=== PATIENT | male | born 1975 | race Caucasian/White ===

== ENCOUNTER 2016-11-29 18:16 | Inpatient (IN) | payer BC ==
[2016-11-29] MEDS ORDERED: SODIUM CHLORIDE 0.9% 500 ML IV STA (18:39)
[2016-11-29] MEDS ORDERED: IPRATROPIUM-ALBUTEROL 3 ML NEB INHALATION STA (18:39)
[2016-11-29] MEDS ORDERED: SODIUM CHLORIDE 0.9% 1,000 ML IV STA (18:39)
--- NOTE | 2016-11-29 18:45 | ED ---
General Adult HPI - General Chief complaint: Shortness of Breath Stated complaint: SOB, dizziness, weakness Time Seen by Provider: 11/29/16 18:29 Source: patient, RN notes reviewed, old records reviewed Mode of arrival: wheelchair Limitations: no limitations - History of Present Illness Initial comments: Chief complaint history of present illness a 41-year-old male brought emergency room because of shortness of breath. The patient is morbidly obese weighs 400 pounds. He reports 2 days ago while on the job his coworkers said he looked awful. He took a day off yesterday and decided to come in today because of difficulty breathing. His pulse ox was in the 70s. It went up after is placed on O2. The patient is diaphoretic states he thinks he may have had a fever at home. No chest pain but he has had a productive cough no nausea no vomiting no diarrhea but decreased appetite. - Related Data Home Medications Medication Instructions Recorded Confirmed Naproxen Sodium [Aleve] 440 mg PO TID PRN 04/29/16 04/29/16 Primatine Mist Tabs 1 tab PO Q4H PRN 04/29/16 04/29/16 Previous Rx's Medication Instructions Recorded Collagenase [Santyl] 1 applic TOPICAL DAILY #1 applic 05/02/16 Dicloxacillin [Dynapen] 500 mg PO Q6H 14 Days 05/02/16 Ipratropium-Albuterol Nebulize 3 ml INHALATION RT-Q4H #120 05/02/16 [Duoneb 0.5 mg-3 mg/3 ml Soln] ampul.neb Montelukast [Singulair] 10 mg PO HS #30 tab 05/02/16 predniSONE 60 mg PO DAILY #60 tab 05/02/16 Allergies Allergy/AdvReac Type Severity Reaction Status Date / Time hydromorphone [From Dilaudid] Allergy Unknown Verified 11/29/16 18:23 Review of Systems ROS Statement: Those systems with pertinent positive or pertinent negative responses have been documented in the HPI. Review of systems. Patient denies any headache or visual acuity changes he is diaphoretic. No chest pain does complain of being short of breath for the past several days of feeling better on O2. No nausea no vomiting no abdominal pain and takes about normal. No significant change in peripheral swelling. All systems are reviewed Past medical problems significant for possible COPD per patient. Morbid obesity and large cellulitis on that left leg back in April. Patient smokes a pack per day strongly encouraged to stop. States he never followed up after being discharged and told he should because of his lung problems. ROS Other: All systems not noted in ROS Statement are negative. Past Medical History Additional Past Medical History / Comment(s): obesity, L thigh numbness on and off, bilateral lower extremity reddened skin, bilateral lower leg and pedal edema. History of Any Multi-Drug Resistant Organisms: None Reported Past Surgical History: Orthopedic Surgery Additional Past Surgical History / Comment(s): I&D R neck abscess, R humerus fx with plate. Past Anesthesia/Blood Transfusion Reactions: No Reported Reaction Past Psychological History: No Psychological Hx Reported Additional Psychological History / Comment(s): Pt resides with his girlfriend. He is independent. 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 Smoking Status: Current every day smoker Past Alcohol Use History: None Reported Additional Past Alcohol Use History / Comment(s): Pt states he started smoking in 1989 and is a ppd smoker. Past Drug Use History: None Reported - Past Family History Father Family Medical History: Cancer Additional Family Medical History / Comment(s): Father had lymphom treated with chemo. He is alive and in his 60's Mother Family Medical History: Myocardial Infarction (DE) Additional Family Medical History / Comment(s): Mother possibly of a DE at the age of 62. General Exam - General Exam Comments Initial Comments: General: The patient is awake and alert, presents short of breath with low pulse ox. Nonrebreather increase pulse ox is 95%. Patient's diaphoretic. Reports she's had productive green cough for several days. Vital signs show temperature 98.9 pulse 120 blood pressure 176/95. pulse ox 70% on room air up to 95% with nonrebreather. Eye: Pupils are equal, round and reactive to light, extra-ocular movements are intact ; there is normal conjunctiva bilaterally. No signs of icterus. Ears, nose, mouth and throat: There are moist mucous membranes and no oral lesions. Neck: The neck is supple, there is no tenderness . Cardiovascular: Tachycardic heart rate 120. No murmur, rub or gallop is appreciated. Respiratory: Short of breath with low pulse ox, improved after nonrebreather. Distant heart sounds unable to appreciate any crepitant rales. No wheezing appreciated. He does have history of COPD and last admission. Gastrointestinal: Morbidly obese, denying nausea vomiting or diarrhea. No pain on palpation around the abdomen. No pulsatile masses appreciated no organomegaly. Back: There is no tenderness to palpation in the midline. There is no obvious deformity. No rashes noted. Musculoskeletal: Appears to be chronic venous stasis lower extremities he reports no more swelling today than normal. Positive pitting edema Neurological: CN II-XII intact, There are no obvious motor or sensory deficits. Coordination appears grossly intact. Speech is normal. Skin: Arrived diaphoretic. Psychiatric: Cooperative, appropriate mood & affect, normal judgment. Limitations: no limitations Course Vital Signs 11/29/16 11/29/16 11/29/16 18:19 18:40 19:04 Temperature 99.8 F H Pulse Rate 120 H 100 Respiratory 20 Rate Blood Pressure 176/95 O2 Sat by Pulse 70 L 92 L Oximetry 11/29/16 19:13 Temperature Pulse Rate 96 Respiratory Rate Blood Pressure O2 Sat by Pulse Oximetry EKG Findings - EKG Comments: EKG Findings:: EKG was done and reviewed at 1831 showing sinus tachycardia rate 104. An incomplete right bundle branch block no acute ST elevation no ectopy no ischemic changes. Rate 14. Was 170 QRS 90 QT [address] John Medical Decision Making - Medical Decision Making Medical decision making the patient's white count 20.9 BUN 17 creatinine 53 with a troponin 0.52. INR 1.3 with a potassium 5.5 BUN 24 creatinine 0.67 with a GFR greater than 60. Glucose 165. BNP elevated 2009 Chest x-ray was done and reviewed by radiologist his impression is there is coarse interstitial densities throughout the lungs. Heart size is normal. There are no hilar masses. There is no definite pleural effusion. Bony thorax is intact. Impression increased pulmonary interstitial density compared to last exam is nonspecific no pleural effusion or cardiomegaly suggest heart failure. This is consistent with nonspecific interstitial pneumonia. This appears to be new compared to last exam. Dr. Florez. The patient's febrile, with a white count. Productive cough. With no elevated BNP. He also has no elevated troponin. He is receiving heparin. He'll be started on Levaquin and is already received updraft and nitroglycerin and heparin. The case discussed Dr. De Anda on-call for Dr. Cole. Patient be admitted to his service. 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 Cardiology will also be notified because of the elevated troponin. - Lab Data Result diagrams: 11/29/16 18:34 11/29/16 18:34 Lab Results 11/29/16 11/29/16 11/29/16 Range/Units 18:34 18:34 18:34 WBC 20.9 H (3.8-10.6) k/uL RBC 5.36 (4.30-5.90) m/uL Hgb 17.5 (13.0-17.5) gm/dL Hct 53.7 H (39.0-53.0) % MCV 100.3 H (80.0-100.0) fL MCH 32.7 (25.0-35.0) pg MCHC 32.6 (31.0-37.0) g/dL RDW 14.6 (11.5-15.5) % Plt Count 248 (150-450) k/uL Neutrophils % 91 % Lymphocytes % 4 % Monocytes % 3 % Eosinophils % 1 % Basophils % 0 % Neutrophils # 19.1 H (1.3-7.7) k/uL Lymphocytes # 0.9 L (1.0-4.8) k/uL Monocytes # 0.6 (0-1.0) k/uL Eosinophils # 0.2 (0-0.7) k/uL Basophils # 0.1 (0-0.2) k/uL Hypochromasia Moderate Macrocytosis Slight PT (9.0-12.0) sec INR (<1.1) APTT (22.0-30.0) sec Sodium 138 (137-145) mmol/L Potassium 5.5 H (3.5-5.1) mmol/L Chloride 94 L (98-107) mmol/L Carbon Dioxide 33 H (22-30) mmol/L Anion Gap 11 mmol/L BUN 24 H (9-20) mg/dL Creatinine 0.67 (0.66-1.25) mg/dL Est GFR (MDRD) Af Amer >60 (>60 ml/min/1.73 sqM) Est GFR (MDRD) Non-Af >60 (>60 ml/min/1.73 sqM) Glucose 165 H (74-99) mg/dL Calcium 9.0 (8.4-10.2) mg/dL Magnesium 2.2 (1.6-2.3) mg/dL Total Bilirubin 1.3 (0.2-1.3) mg/dL AST 35 (17-59) U/L ALT 46 (21-72) U/L Alkaline Phosphatase 100 (38-126) U/L Total Creatine Kinase 60 (55-170) U/L CK-MB (CK-2) 2.0 (0.0-2.4) ng/mL CK-MB (CK-2) Rel Index 3.3 Troponin I 0.052 H* (0.000-0.034) ng/mL NT-Pro-B Natriuret Pep pg/mL Total Protein 7.2 (6.3-8.2) g/dL Albumin 3.9 (3.5-5.0) g/dL 11/29/16 11/29/16 Range/Units 18:34 18:34 WBC (3.8-10.6) k/uL RBC (4.30-5.90) m/uL Hgb (13.0-17.5) gm/dL Hct (39.0-53.0) % MCV (80.0-100.0) fL MCH (25.0-35.0) pg MCHC (31.0-37.0) g/dL RDW (11.5-15.5) % Plt Count (150-450) k/uL Neutrophils % % Lymphocytes % % Monocytes % % Eosinophils % % Basophils % % Neutrophils # (1.3-7.7) k/uL Lymphocytes # (1.0-4.8) k/uL Monocytes # (0-1.0) k/uL Eosinophils # (0-0.7) k/uL Basophils # (0-0.2) k/uL Hypochromasia Macrocytosis PT 12.6 H (9.0-12.0) sec INR 1.3 (<1.1) APTT 26.4 (22.0-30.0) sec Sodium (137-145) mmol/L Potassium (3.5-5.1) mmol/L Chloride (98-107) mmol/L Carbon Dioxide (22-30) mmol/L Anion Gap mmol/L BUN (9-20) mg/dL Creatinine (0.66-1.25) mg/dL Est GFR (MDRD) Af Amer (>60 ml/min/1.73 sqM) Est GFR (MDRD) Non-Af (>60 ml/min/1.73 sqM) Glucose (74-99) mg/dL Calcium (8.4-10.2) mg/dL Magnesium (1.6-2.3) mg/dL Total Bilirubin (0.2-1.3) mg/dL AST (17-59) U/L ALT (21-72) U/L Alkaline Phosphatase (38-126) U/L Total Creatine Kinase (55-170) U/L CK-MB (CK-2) (0.0-2.4) ng/mL CK-MB (CK-2) Rel Index Troponin I (0.000-0.034) ng/mL NT-Pro-B Natriuret Pep 2010 pg/mL Total Protein (6.3-8.2) g/dL Albumin (3.5-5.0) g/dL Disposition Clinical Impression: Interstitial pneumonia, COPD (chronic obstructive pulmonary disease), Elevated troponin Disposition: ADMITTED IP TO THIS HOSP Condition: Serious
[2016-11-29 18:51] LABS: Basophils # (A) 0.1 k/uL (0-0.2); Basophils % (A) 0 %; CH 30.9; Eosinophils # (A) 0.2 k/uL (0-0.7); Eosinophils % (A) 1 %; HCT 53.7 % (39.0-53.0); HDW 2.85; HGB 17.5 gm/dL (13.0-17.5); Hypochromasia Moderate; Luc # (Auto) 0.12; Luc % (Auto) 1; Lymphocytes # (A) 0.9 k/uL (1.0-4.8); Lymphocytes % (A) 4 %; MCH 32.7 pg (25.0-35.0); MCHC 32.6 g/dL (31.0-37.0); MCV 100.3 fL (80.0-100.0); Macrocytosis Slight; Mean Platelet Volume 7.1; Monocytes # (A) 0.6 k/uL (0-1.0); Monocytes % (A) 3 %; Neutrophils # (A) 19.1 k/uL (1.3-7.7); Neutrophils % (A) 91 %; RBC 5.36 m/uL (4.30-5.90); RDW 14.6 % (11.5-15.5); WBC 20.9 k/uL (3.8-10.6); WBC (Perox) 22.76
[2016-11-29 19:01] LABS: ALT 46 U/L (21-72); AST 35 U/L (17-59); Alkaline Phosphatase 100 U/L (38-126); Anion Gap 11 mmol/L; Blood Urea Nitrogen 24 mg/dL (9-20); Carbon Dioxide 33 mmol/L (22-30); Chloride 94 mmol/L (98-107); Glucose 165 mg/dL (74-99); Magnesium 2.2 mg/dL (1.6-2.3); Non-African American GFR(MDRD) >60 (>60 ml/min/1.73 sqM); Sodium 138 mmol/L (137-145); Total Bilirubin 1.3 mg/dL (0.2-1.3); Total Protein 7.2 g/dL (6.3-8.2)
[2016-11-29 19:03] LABS: INR 1.3 (<1.1); Partial Thromboplastin Time 26.4 sec (22.0-30.0); Prothrombin Time 12.6 sec (9.0-12.0)
[2016-11-29 19:14] LABS: Potassium 5.5 mmol/L (3.5-5.1)
[2016-11-29] MEDS ORDERED: methylPREDNISolone SOD SUCCI 125 MG/2 ML VIAL IV STA (19:18)
[2016-11-29 19:37] LABS: Troponin I 0.052 ng/mL (0.000-0.034)
[2016-11-29] MEDS ORDERED: FUROSEMIDE 10 MG/ML 4 ML VIAL IV STA (19:48)
[2016-11-29] MEDS ORDERED: HEPARIN SODIUM,PORCINE 5,000 UNIT/ML 1 ML VIAL IV ONE (19:50)
[2016-11-29] MEDS: HEPARIN SODIUM,PORCINE/D5W PMX 25,000 UNIT in DEXTROSE/WATER 1 500ML.BAG IV SCH (20:16)
--- NOTE | 2016-11-29 20:24 | XR ---
EXAMINATION TYPE: XR chest 2V DATE OF EXAM: 11/29/2016 8:06 PM COMPARISON: May 01, 2016 HISTORY: Difficulty breathing TECHNIQUE: Frontal and lateral views of the chest are obtained. FINDINGS: There is coarse interstitial density throughout the lungs. Heart size is normal. There are no hilar masses. There is no definite pleural effusion. Bony thorax is intact. IMPRESSION: Increased pulmonary interstitial density compared to last exam is nonspecific. No pleura l fluid or cardiomegaly to suggest heart failure. This is consistent with nonspecific interstitial pn eumonia. This appears new compared to last exam.
[2016-11-29] MEDS ORDERED: LEVOFLOXACIN 500MG-D5W PMX 500 MG in DEXTROSE/WATER 1 100ML.BAG IVPB STA (20:39)
[2016-11-29] MEDS ORDERED: IPRATROPIUM-ALBUTEROL 3 ML NEB INHALATION PRN (20:45)
[2016-11-29] MEDS ORDERED: NALOXONE 0.4 MG/ML 1 ML VIAL IV PRN (20:45)
[2016-11-29] MEDS ORDERED: ACETAMINOPHEN TAB 325 MG TAB PO PRN (20:45)
[2016-11-29] MEDS ORDERED: ACETAMINOPHEN IV (For NPO) 1,000 MG in EMPTY BAG 1 BAG IVPB STA (21:17)
[2016-11-29] MEDS ORDERED: NITROGLYCERIN SL TABS 0.4 MG TAB SUBLINGUAL STA (21:17)
[2016-11-29] MEDS ORDERED: hydrALAZINE HCL 20 MG/ML 1 ML VIAL IVP STA (22:26)
[2016-11-30] MEDS: FUROSEMIDE 10 MG/ML 4 ML VIAL IV SCH ×4 (01:33→20:49)
[2016-11-30] MEDS: methylPREDNISolone SOD SUCCI 125 MG/2 ML VIAL IV SCH ×4 (01:33→18:01)
[2016-11-30] MEDS: FAMOTIDINE 20 MG TAB PO SCH ×3 (01:36→20:49)
[2016-11-30] MEDS ORDERED: ADENOSINE 3 MG/ML 2 ML VIAL IVP STA (05:03)
--- NOTE | 2016-11-30 05:06 | ED ---
Medical Decision Making - Medical Decision Making The patient was noted during his stay in the emergency department after admission this heart rate without markedly. Was unclear from was SVT versus atrial fibrillation with a rapid ventricular response. Patient was given 6 mg of adenosine which did reveal atrial flutter. Patient was started on a Cardizem drip. He will be seen by cardiology in the a.m. - Lab Data Result diagrams: 11/29/16 18:34 11/29/16 18:34 Lab Results 11/29/16 11/29/16 11/29/16 Range/Units 18:34 18:34 18:34 WBC 20.9 H (3.8-10.6) k/uL RBC 5.36 (4.30-5.90) m/uL Hgb 17.5 (13.0-17.5) gm/dL Hct 53.7 H (39.0-53.0) % MCV 100.3 H (80.0-100.0) fL MCH 32.7 (25.0-35.0) pg MCHC 32.6 (31.0-37.0) g/dL RDW 14.6 (11.5-15.5) % Plt Count 248 (150-450) k/uL Neutrophils % 91 % Lymphocytes % 4 % Monocytes % 3 % Eosinophils % 1 % Basophils % 0 % Neutrophils # 19.1 H (1.3-7.7) k/uL Lymphocytes # 0.9 L (1.0-4.8) k/uL Monocytes # 0.6 (0-1.0) k/uL Eosinophils # 0.2 (0-0.7) k/uL Basophils # 0.1 (0-0.2) k/uL Hypochromasia Moderate Macrocytosis Slight PT (9.0-12.0) sec INR (<1.1) APTT (22.0-30.0) sec Sodium 138 (137-145) mmol/L Potassium 5.5 H (3.5-5.1) mmol/L Chloride 94 L (98-107) mmol/L Carbon Dioxide 33 H (22-30) mmol/L Anion Gap 11 mmol/L BUN 24 H (9-20) mg/dL Creatinine 0.67 (0.66-1.25) mg/dL Est GFR (MDRD) Af Amer >60 (>60 ml/min/1.73 sqM) Est GFR (MDRD) Non-Af >60 (>60 ml/min/1.73 sqM) Glucose 165 H (74-99) mg/dL Calcium 9.0 (8.4-10.2) mg/dL Magnesium 2.2 (1.6-2.3) mg/dL Total Bilirubin 1.3 (0.2-1.3) mg/dL AST 35 (17-59) U/L ALT 46 (21-72) U/L Alkaline Phosphatase 100 (38-126) U/L Total Creatine Kinase 60 (55-170) U/L CK-MB (CK-2) 2.0 (0.0-2.4) ng/mL CK-MB (CK-2) Rel Index 3.3 Troponin I 0.052 H* (0.000-0.034) ng/mL NT-Pro-B Natriuret Pep pg/mL Total Protein 7.2 (6.3-8.2) g/dL Albumin 3.9 (3.5-5.0) g/dL 11/29/16 11/29/16 Range/Units 18:34 18:34 WBC (3.8-10.6) k/uL RBC (4.30-5.90) m/uL Hgb (13.0-17.5) gm/dL Hct (39.0-53.0) % MCV (80.0-100.0) fL MCH (25.0-35.0) pg MCHC (31.0-37.0) g/dL RDW (11.5-15.5) % Plt Count (150-450) k/uL Neutrophils % % Lymphocytes % % Monocytes % % Eosinophils % % Basophils % % Neutrophils # (1.3-7.7) k/uL Lymphocytes # (1.0-4.8) k/uL Monocytes # (0-1.0) k/uL Eosinophils # (0-0.7) k/uL Basophils # (0-0.2) k/uL Hypochromasia Macrocytosis PT 12.6 H (9.0-12.0) sec INR 1.3 (<1.1) APTT 26.4 (22.0-30.0) sec Sodium (137-145) mmol/L Potassium (3.5-5.1) mmol/L Chloride (98-107) mmol/L Carbon Dioxide (22-30) mmol/L Anion Gap mmol/L BUN (9-20) mg/dL Creatinine (0.66-1.25) mg/dL Est GFR (MDRD) Af Amer (>60 ml/min/1.73 sqM) Est GFR (MDRD) Non-Af (>60 ml/min/1.73 sqM) Glucose (74-99) mg/dL Calcium (8.4-10.2) mg/dL Magnesium (1.6-2.3) mg/dL Total Bilirubin (0.2-1.3) mg/dL AST (17-59) U/L ALT (21-72) U/L Alkaline Phosphatase (38-126) U/L Total Creatine Kinase (55-170) U/L CK-MB (CK-2) (0.0-2.4) ng/mL CK-MB (CK-2) Rel Index Troponin I (0.000-0.034) ng/mL NT-Pro-B Natriuret Pep 2010 pg/mL Total Protein (6.3-8.2) g/dL Albumin (3.5-5.0) g/dL Disposition Clinical Impression: Interstitial pneumonia, COPD (chronic obstructive pulmonary disease), Elevated troponin, Atrial flutter with rapid ventricular response Disposition: ADMITTED IP TO THIS HOSP Condition: Serious
[2016-11-30] MEDS ORDERED: HEPARIN SODIUM,PORCINE 5,000 UNIT/ML 1 ML VIAL IV ONE ×2 (05:07→22:55)
[2016-11-30] MEDS: DILTIAZEM 125 MG in SODIUM CHLORIDE 0.9% 100 ML IV SCH ×2 (05:25→23:06)
[2016-11-30 05:32] LABS: INR 1.5 (<1.1); Prothrombin Time 14.2 sec (9.0-12.0)
[2016-11-30 06:07] LABS: Anion Gap 13 mmol/L; Blood Urea Nitrogen 24 mg/dL (9-20); Calcium 8.8 mg/dL (8.4-10.2); Carbon Dioxide 28 mmol/L (22-30); Chloride 97 mmol/L (98-107); Glucose 200 mg/dL (74-99); Non-African American GFR(MDRD) >60 (>60 ml/min/1.73 sqM); Sodium 138 mmol/L (137-145)
[2016-11-30 06:22] LABS: CH 30.7; CHCM 30.5; HDW 2.75; Hypochromasia Moderate; MCV 101.2 fL (80.0-100.0); Macrocytosis Slight
[2016-11-30 06:25] LABS: HCT 58.6 % (39.0-53.0); HGB 18.4 gm/dL (13.0-17.5); MCH 31.9 pg (25.0-35.0); MCHC 31.5 g/dL (31.0-37.0); Mean Platelet Volume 7.4; RBC 5.79 m/uL (4.30-5.90); RDW 14.6 % (11.5-15.5); WBC 19.1 k/uL (3.8-10.6); WBC (Perox) 20.17
[2016-11-30 07:19] LABS: Add Differential Manual Differential
[2016-11-30 07:21] LABS: Nucleated Red Blood Cells 0 /100 WBC (0-0); Polychromasia Present; Total Cells Counted 100
[2016-11-30] MEDS: SODIUM CHLORIDE 0.9% 1,000 ML IV SCH ×2 (07:47→16:57)
--- NOTE | 2016-11-30 07:49 | XR ---
EXAMINATION TYPE: XR chest 1V DATE OF EXAM: 11/30/2016 6:06 AM COMPARISON: 11/29/2016 HISTORY: 41-year-old male interstitial pneumonia TECHNIQUE: Single frontal view of the chest is obtained. FINDINGS: Heart is upper limits of normal in size. Diffuse interstitial opacities persist. No kendrick consolidati on or significant pleural effusion seen below the left base is underpenetrated and limited evaluation . IMPRESSION: Overall stable diffuse interstitial densities. Some differential considerations include cardiogenic/n oncardiogenic pulmonary edema, atypical pneumonias, and interstitial pneumonitis.
[2016-11-30 17:39] LABS: Glucose,Whole Blood 133 mg/dL (75-99)
[2016-11-30] MEDS: HEPARIN SODIUM,PORCINE/D5W PMX 25,000 UNIT in DEXTROSE/WATER 1 500ML.BAG IV SCH ×3 (18:01→21:55)
[2016-11-30 20:37] VITALS: BMI 65.3
[2016-11-30] MEDS: LEVALBUTEROL NEB 1.25 MG/3 ML AMP INHALATION SCH (20:40)
--- NOTE | 2016-11-30 20:47 | CONS ---
DATE OF CONSULTATION: Mr. Lopez is a 41-year-old male with no prior ( ) who does not follow with a physician on a regular basis who presented with symptoms of progressive dyspnea. Patient was noted to be quite dyspneic on presentation. He subsequently had an episode of atrial flutter with 2:1 conduction, was started on IV Cardizem drip and converted back to sinus mechanism. He was in the hospital in March of this year and at that time presented with severe sepsis with left thigh wound and cellulitis with evidence of severe obstructive sleep apnea and unfortunately, did not follow up after his discharge. During that admission he had an echocardiogram that showed a preserved left ventricular size and systolic function, with moderately dilated right ventricle. Patient has no symptoms of chest pain except today with a cough. He has history of peripheral edema. He has no clear PND. He did not feel the arrhythmia and he has no history of syncope. He started to feel dyspneic and fatigued for the last 4 days with cough. He did not check his temperature. He is back in sinus mechanism at the time of my evaluation. His coronary risk factors are remarkable for smoking and he has not been treated for hypertension or hyperlipidemia in the past. He denies any history of diabetes. He is taking no medication at the time of his discharge. REVIEW OF SYSTEMS: RESPIRATORY SYSTEM: He has significant dyspnea on exertion, a cough. He has history of obstructive sleep apnea, but he is not on CPAP. GI system: No recent GI bleeding. No peptic ulcer disease. system: No dysuria or hematuria. Nervous system: No history of stroke or seizure. SOCIAL HISTORY: He denies any alcohol. He drinks caffeine and uses marijuana occasionally. According to him the last time he used it was over 4 weeks ago. PHYSICAL EXAMINATION: A 41-year-old male, morbidly obese, alert, in no apparent distress. Blood pressure 167/70 with a heart in the 80s. HEAD: Normocephalic. EYES: Sclerae anicteric. NECK: No bruit. LUNGS: With decreased air exchange bilaterally with diffuse wheezes. HEART: Regular rate and rhythm. S1, S2, no S3, with systolic murmur at the base. No diastolic murmur. ABDOMEN: Soft, obese, nontender, positive bowel sounds. No organomegaly. EXTREMITIES: +1 to 2 edema bilaterally with decreased distal pulses and chronic stasis changes. Lab data revealed a white blood cell of 20.9. His hemoglobin is 18.4, his BUN and creatinine 24 and 0.6. On presentation, his bicarb 41. His troponin is 0.052 and subsequently 0.026. His NT-proBNP is 2010. His cholesterol is 116, LDL of 60. Chest x-ray shows increased density could be related to congestive heart failure, possible interstitial pneumonia cannot be excluded. His initial EKG was sinus mechanism, heart rate of 104 with poor R wave progression and nonspecific ST-T wave changes. Subsequently his EKG revealed atrial flutter with 2:1 conduction. IMPRESSION: 1. Progressive symptoms of dyspnea with probable pneumonia, in a patient with severe chronic lung disease with severe wheezing and history of obstructive sleep apnea, not treated. 2. Episode of atrial flutter back in sinus mechanism, could be exacerbated by his lung status. 3. Probable fluid overload related to his infectious disease. His systolic function was normal in April. 4. Chronic hypoxemia by the elevated hemoglobin. 5. Morbid obesity. 6. Obstructive sleep apnea. 7. Hypertension, not treated in the past. 8. Chronic tobacco use. RECOMMENDATIONS: From the cardiac standpoint, he is on IV heparin. I will start him on oral beta rush. I will obtain echocardiogram with Doppler. Check his thyroid function tests. I will start Lisinopril to optimize his blood pressure control. Will continue his diuresis. Depending on his progress, further recommendation will be made. Thank you for this consult. We will follow with you.
[2016-11-30] MEDS: LEVOFLOXACIN 500MG-D5W PMX 500 MG in DEXTROSE/WATER 1 100ML.BAG IVPB SCH (20:48)
[2016-11-30 20:52] LABS: Glucose,Whole Blood 192 mg/dL (75-99)
[2016-11-30] MEDS: INSULIN LISPRO (humaLOG) 300 UNIT/3 ML VIAL SQ SCH (20:52)
[2016-11-30] MEDS: METOPROLOL TARTRATE 25 MG TAB PO SCH (20:53)
[2016-11-30] MEDS ORDERED: IV VANCOMYCIN PER PHARMACY 1 EACH MISC MISCELLANE PRN (21:50)
[2016-11-30] MEDS ORDERED: VANCOMYCIN 2,500 MG in SODIUM CHLORIDE 0.9% 500 ML IVPB ONE (22:30)
[2016-11-30 22:36] LABS: Magnesium 2.3 mg/dL (1.6-2.3)
[2016-12-01] MEDS: methylPREDNISolone SOD SUCCI 125 MG/2 ML VIAL IV SCH ×5 (00:40→23:34)
[2016-12-01] MEDS: PIPERACILLIN-TAZOBACTAM 3.375 GM in DEXTROSE/WATER 1 50ML.BAG IVPB SCH ×4 (00:40→23:34)
[2016-12-01 01:57] LABS: Appearance,Urine Cloudy (Clear); Bacteria,Urine Rare /hpf; Bilirubin,Urine Negative (Negative); Glucose,Urine (UA) Negative (Negative); Ketones,Urine Negative (Negative); Leukocyte Esterase,Urine Small (Negative); Mucus,Urine Occasional /hpf; Nitrite,Urine Negative (Negative); PH, Urine 5.5 (5.0-8.0); Particle Count 7563; Protein,Urine Trace (Negative); RBC,Urine 3 /hpf (0-5); Specific Gravity,Urine 1.014 (1.001-1.035); Squamous Epithelial Cell,Urine <1 /hpf (0-4); UA Billing (MACRO vs. MICRO) MICRO; Urobilinogen,Urine <2.0 mg/dL (<2.0); WBC,Urine 7 /hpf (0-5)
[2016-12-01 05:11] LABS: Basophils % (A) 0 %; CH 30.2; CHCM 28.8; Eosinophils # (A) 0.2 k/uL (0-0.7); Eosinophils % (A) 1 %; HCT 56.5 % (39.0-53.0); HDW 2.71; Hypochromasia Marked; Luc # (Auto) 0.17; Luc % (Auto) 1; Lymphocytes # (A) 0.9 k/uL (1.0-4.8); Lymphocytes % (A) 4 %; MCH 31.6 pg (25.0-35.0); MCV 105.4 fL (80.0-100.0); Macrocytosis Moderate; Mean Platelet Volume 6.7; Monocytes # (A) 0.6 k/uL (0-1.0); Monocytes % (A) 3 %; Neutrophils # (A) 18.7 k/uL (1.3-7.7); Neutrophils % (A) 91 %; RBC 5.36 m/uL (4.30-5.90); RDW 14.5 % (11.5-15.5); WBC 20.7 k/uL (3.8-10.6); WBC (Perox) 21.83
[2016-12-01 05:53] LABS: Anion Gap 10 mmol/L; Blood Urea Nitrogen 36 mg/dL (9-20); Calcium 8.7 mg/dL (8.4-10.2); Carbon Dioxide 35 mmol/L (22-30); Chloride 98 mmol/L (98-107); Glucose 214 mg/dL (74-99); Magnesium 2.6 mg/dL (1.6-2.3); Non-African American GFR(MDRD) >60 (>60 ml/min/1.73 sqM); Phosphorous 5.4 mg/dL (2.5-4.5); Sodium 143 mmol/L (137-145)
[2016-12-01 05:56] LABS: Potassium 6.2 mmol/L (3.5-5.1)
[2016-12-01] MEDS ORDERED: SODIUM POLYSTYRENE SULFONATE 15 GM/60 ML BOTTLE PO STA (06:08)
[2016-12-01] MEDS: HEPARIN SODIUM,PORCINE/D5W PMX 25,000 UNIT in DEXTROSE/WATER 1 500ML.BAG IV SCH ×3 (06:21→20:38)
[2016-12-01 07:40] LABS: Glucose,Whole Blood 167 mg/dL (75-99)
[2016-12-01] MEDS: INSULIN LISPRO (humaLOG) 300 UNIT/3 ML VIAL SQ SCH ×4 (07:57→20:55)
[2016-12-01] MEDS: FUROSEMIDE 10 MG/ML 4 ML VIAL IV SCH ×2 (07:59→20:38)
[2016-12-01] MEDS: METOPROLOL TARTRATE 25 MG TAB PO SCH ×2 (07:59→20:39)
[2016-12-01] MEDS: FAMOTIDINE 20 MG TAB PO SCH (07:59)
[2016-12-01] MEDS: LISINOPRIL 5 MG TAB PO SCH (07:59)
[2016-12-01] MEDS: LEVALBUTEROL NEB 1.25 MG/3 ML AMP INHALATION SCH ×4 (08:22→19:48)
--- NOTE | 2016-12-01 08:37 | XR ---
EXAMINATION TYPE: XR chest 1V portable DATE OF EXAM: 12/01/2016 6:46 AM COMPARISON: Prior chest x-ray first of November 2016 HISTORY: Pneumonia TECHNIQUE: Single frontal view of the chest is obtained. FINDINGS: Bandlike area of increased density present in the mid lung on the right. There are overlyi ng cardiac leads. Interstitium somewhat increased. The heart remains enlarged. No pneumothorax or ple ural effusion. IMPRESSION: Persistent interstitial lung disease, atelectasis, correlate to exclude pneumonia. Stabl e cardiomegaly.
[2016-12-01] MEDS ORDERED: PANTOPRAZOLE 40 MG/10 ML VIAL IV SCH (09:00)
[2016-12-01] MEDS: VANCOMYCIN 2,500 MG in SODIUM CHLORIDE 0.9% 500 ML IVPB SCH ×2 (09:02→20:39)
[2016-12-01 09:12] LABS: ABG PCO2 101 mmHg (35-45); ABG PH 7.21 (7.35-7.45); ABG PO2 71 mmHg (83-108)
[2016-12-01 09:13] LABS: ABG Base Excess 10.5 mmol/L; ABG HCO3 38 mmol/L (21-25); ABG TCO2 42 mmol/L (19-24)
--- NOTE | 2016-12-01 10:43 | HP ---
DATE OF ADMISSION CHIEF COMPLAINT: Difficulty breathing. HISTORY OF PRESENT ILLNESS: Mr. Lopez is a 41-year-old male with known history of morbid obesity, obstructive sleep apnea, hypertension, hyperlipidemia and an everyday smoker, came to the ER with complaints of difficulty breathing, worsening for the past 2 days. His pulse ox was 70 when he came to the hospital. Patient was diaphoretic and had subjective fevers at home. Otherwise, denied any complaints of chest pain. No nausea or vomiting, abdominal pain. The patient was found to have atrial flutter while in the ER and slightly elevated troponin level and cardiology has been consulted. Patient was in the hospital in March of 2016 with thigh cellulitis and was advised to follow with sleep clinic for obstructive sleep apnea but the patient never followed up. Patient currently not taking any medications for hypertension or hyperlipidemia. The patient had a chest x-ray in the ER that showed increased pulmonary interstitial density compared to last exam. No pleural fluid or cardiomegaly to suggest heart failure. ( ) interstitial pneumonia. He appears ( ) compared to last exam. Patient has subsequently been transferred to MICU. Currently patient is saturating well on nasal cannula. REVIEW OF SYSTEMS: CONSTITUTIONAL: The patient does have subjective fever and no chills. Patient does have generalized weakness. RESPIRATORY: Patient does have cough with green sputum production and short of breath. CARDIOVASCULAR: No chest pain. Patient does have short of breath. No worsening leg swelling. ABDOMEN: No nausea, vomiting, abdominal pain. GENITOURINARY: Negative. ENDOCRINE: Negative. PSYCHIATRIC: Negative. SKIN: All other 14 systems reviewed and negative except as above. PAST MEDICAL HISTORY: Includes morbid obesity with BMI of 65.4, left thigh numbness, bilateral lower extremity redness in skin bilateral lower extremity, edema chronic, hypertension and hyperlipidemia, not being treated. Suspected history of obstructive sleep apnea. PAST SURGICAL HISTORY: I&D, neck abscess, right humerus fracture, history of thigh cellulitis. SOCIAL HISTORY: Patient lives with his girlfriend, currently everyday smoker. Denied any alcohol use. Denied any drugs or IVDU. FAMILY HISTORY: Father had cancer ( ). Mother had [place]. Home medications include Naprosyn, ( ), Santyl and dicloxacillin ( ) and prednisone. ALLERGIES: Hydromorphone. PHYSICAL EXAMINATION: A 41-year-old male lying in the bed. Awake, alert, oriented, x3. Morbidly obese. VITAL SIGNS: Blood pressure 123/78, pulse 84, respirations 18, temperature afebrile, pulse ox 94% on 6 liters nasal cannula. HEENT: Atraumatic, normocephalic. Neck is supple. No JVD. CVS: S1, S2 heard. No murmurs or gallop. LUNGS: Bilateral air entry is diminished. Prolonged expiratory phase. No crackles. Nonlabored breathing. ABDOMEN: Soft, nontender, bowel sounds present. INTERPRETER: Alert, awake, oriented x3. No focal neurologic deficits. Cranial nerves grossly intact. EXTREMITIES: Bilateral lower extremities trace edema. Pulses palpable bilaterally. No clubbing, no cyanosis. PSYCHIATRIC: Cooperative. LABORATORY DATA: WBC 20.9, hemoglobin 17.5, platelets are 248. INR 1.3, sodium 138, potassium 5.5, chloride 94, bicarb is 33, BUN 24, creatinine 0.67. Initial troponin 0.052 and 0.026. Chest x-ray showed increased pulmonary interstitial density. Compared to last exam it is nonspecific. No pleural fluid or cardiomegaly to suggest congestive heart failure consistent with nonspecific interstitial pneumonia. EKG showed sinus tachycardia. Repeat chest x-ray showed overall stable diffuse interstitial densities. Differential considerations include cardiogenic and noncardiogenic pulmonary edema, interstitial pneumonia and interstitial pneumonitis. IMPRESSION: 1. Acute hypoxic respiratory failure secondary to pneumonia and acute ( ) interstitial pneumonia. 2. Acute COPD exacerbation. 3. Suspect obstructive sleep apnea. 4 Morbid obesity with BMI for 65. 5. History of hypertension and hyperlipidemia, uncontrolled ( ) at home at this time. 6. Elevated troponin level, could be due respiratory condition. 7. Atrial flutter in the ER, resolved now. 8. Significant leukocytosis 9. Hyperkalemia with slight hemolysis. DISCUSSION AND PLAN: A 41-year-old male with known history of morbid obesity, has picture of COPD and obstructive sleep apnea and noncompliance to follow up as an outpatient. Admitted to the hospital ( ) and found to have interstitial pneumonia and atrial flutter in the ER. Currently the patient is back in sinus rhythm. Continue with antibiotics in the form of Levaquin and Zosyn from the ER. Continue with the breathing treatments and the steroids in the form of IV methylprednisolone and continue with diuresis with 40 mg of IV Lasix q12 and follow closely. Further recommendations based on clinical course. Cardiology is following the patient. Prognosis is guarded.
[2016-12-01 11:04] LABS: Glucose,Whole Blood 200 mg/dL (75-99)
[2016-12-01] MEDS: SODIUM CHLORIDE 0.9% 1,000 ML IV SCH (11:50)
[2016-12-01 12:11] LABS: Glucose,Whole Blood 172 mg/dL (75-99)
[2016-12-01 12:24] LABS: Hemoglobin A1C 5.8 % (4.2-6.1)
--- NOTE | 2016-12-01 14:29 | P.CNPUL ---
History of Present Illness Consult date: 12/01/16 Requesting physician: Martha De Anda Chief complaint: Shortness of breath, weakness and dizziness. History of present illness: This is a 41-year-old white male with history of multiple medical problems including morbid obesity, obstructive sleep apnea syndrome, however the patient had no previous workup for the apnea in spite of his severe symptoms. Patient was last admitted to [facility] in early April of 2016, and based on the notes exam, patient had MRSA cellulitis of the left thigh with epidermal skin necrosis. Patient was treated by multiple physicians at the time , and he was eventually discharged home , Since discharge, patient had no further follow up with any physicians. He does not see a primary care physician , and he does not see any pulmonary physician on outpatient basis. As a matter of fact, each time the patient gets admitted, he ends up on the list of the hospitalist on city call. His other medical problems on the last admission included COPD, left lower lobe pneumonia, nicotine dependence, polycythemia secondary to chronic hypoxemia and obviously the patient has history of chronic hypoxemic respiratory failure. It is quite surprising to me that the patient had no further follow-up since his last admission considering his multiple medical comorbidities. Patient was admitted this time with mostly symptoms of shortness of breath over the last few days. No nausea no vomiting no abdominal pain. Upon presentation , the patient was noted to be in atrial flutter and he was noted to have elevated troponin. Seen by cardiology, and it was felt that the patient has atrial flutter exacerbated by his lung status. His chest x-ray showed interstitial changes in the right lung, could be pneumonia, and could be pulmonary edema. However considering his fever and leukocytosis, I believe the findings are more pneumonia related. Surprisingly, the patient did not have any productive cough, no chills, but he did have a low-grade fever. Patient was placed empirically on antibiotics, he was also given diuretics by cardiology , and his heparin was continued, patient was placed on beta blockers, and a repeat echocardiogram is pending. Thyroid studies were ordered. Upon my evaluation today, the patient was noted to be slightly confused, and ABG which was supposed to be last night, was done this morning instead, and it showed a significant hypoxic and hypercapnic respiratory failure. His pCO2 was as high as 100, and his pH was down to 7.21. Patient was then placed on BiPAP, and I recommended that we continue bronchodilators, antibiotics, steroids, and diuretics. Follow-up chest x-ray this morning showed prominent interstitium and more interstitial findings noted in the right lung compared to the left lung. I reviewed the results of the previous echocardiogram done in April, it showed mild pulmonary hypertension, and left ventricular hypertrophy, LV function was adequate on that admission. ProBNP level on this admission was 2010, troponin was 0.052, hemoglobin was 17. Review of Systems 12 point review of systems were obtained, please refer to pertinent positives and negatives in HPI Past Medical History Past Medical History: No Reported History Additional Past Medical History / Comment(s): obesity, L thigh numbness on and off, bilateral lower extremity reddened skin, bilateral lower leg and pedal edema. History of Any Multi-Drug Resistant Organisms: None Reported Past Surgical History: Orthopedic Surgery Additional Past Surgical History / Comment(s): I&D R neck abscess, R humerus fx with plate. Past Anesthesia/Blood Transfusion Reactions: No Reported Reaction Past Psychological History: No Psychological Hx Reported Additional Psychological History / Comment(s): Pt resides with his girlfriend. He is independent. 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 Smoking Status: Current every day smoker Past Alcohol Use History: None Reported Additional Past Alcohol Use History / Comment(s): Pt states he started smoking in 1989 and is a ppd smoker. Past Drug Use History: None Reported - Past Family History Father Family Medical History: Cancer Additional Family Medical History / Comment(s): Father had lymphom treated with chemo. He is alive and in his 60's Mother Family Medical History: Myocardial Infarction (MA) Additional Family Medical History / Comment(s): Mother possibly of a MA at the age of 62. Medications and Allergies Home Medications Medication Instructions Recorded Confirmed Type Primatine Mist Tabs 1 tab PO Q4H PRN 04/29/16 11/30/16 History Allergies Allergy/AdvReac Type Severity Reaction Status Date / Time hydromorphone [From Dilaudid] Allergy Unknown Verified 11/30/16 08:05 Physical Exam Vitals: Vital Signs Temp Pulse Pulse Resp BP BP Pulse Ox 12/01/16 13:17 94 L 12/01/16 13:00 62 14 159/73 92 L 12/01/16 12:00 68 20 153/61 95 12/01/16 11:53 66 12/01/16 11:43 76 12/01/16 11:00 62 18 135/64 93 L 12/01/16 10:00 75 17 143/62 93 L 12/01/16 09:00 78 19 174/72 92 L 12/01/16 08:40 73 12/01/16 08:26 76 93 L 12/01/16 08:00 81 39 H 142/75 93 L 12/01/16 07:00 97.5 F L 76 20 139/74 96 12/01/16 06:00 82 14 119/50 95 12/01/16 05:00 89 17 182/66 94 L 12/01/16 04:00 97.5 F L 67 82 20 155/65 95 12/01/16 03:00 88 18 140/65 94 L 12/01/16 02:00 75 19 121/56 95 12/01/16 01:00 73 19 104/48 94 L 12/01/16 00:00 98.1 F 75 82 16 127/61 96 11/30/16 23:00 82 16 127/61 95 11/30/16 22:00 80 18 150/65 95 11/30/16 21:00 92 20 136/64 94 L 11/30/16 20:50 88 11/30/16 20:40 84 11/30/16 20:08 98 F 82 25 H 140/67 93 L 11/30/16 20:00 98.3 F 88 82 25 H 152/74 93 L 11/30/16 19:00 82 140/70 89 L 11/30/16 18:20 77 123/71 92 L 11/30/16 18:10 67 123/71 92 L 11/30/16 18:00 88 123/71 93 L 11/30/16 17:50 84 123/71 94 L 11/30/16 16:54 28 H 11/30/16 16:51 78 24 141/88 92 L 11/30/16 16:05 85 24 147/65 93 L 11/30/16 15:35 24 11/30/16 15:00 83 24 167/70 93 L 11/30/16 14:21 24 Intake and Output 11/30/16 12/01/16 12/01/16 22:59 06:59 14:59 Intake Total 751.3 5924.501 5968.487 Output Total 034 042 1308 Balance 276.3 1170.628 -1355.513 Intake: IV 532.8 1547.7 549.4 Diltiazem 125 mg In 30 45 25 Sodium Chloride 0.9% 100 ml @ 5 MG/HR 5 mls/hr IV .Q24H [facility] Rx#:[id number] Heparin Sodium,Porcine/ 202.8 401.7 224.4 D5w Pmx 25,000 unit In Dextrose/Water 1 500ml. bag @ 12 UNITS/KG/HR 43. 54 mls/hr IV .[id number] [facility] Rx#:[id number] Levofloxacin 500Mg-D5w 100 Pmx 500 mg In Dextrose/ Water 1 100ml.bag @ 100 mls/hr IVPB Q24H [facility] Rx#: [id number] Piperacillin-Tazobactam 3 50 .375 gm In Dextrose/Water 1 50ml.bag @ 12.5 mls/hr IVPB Q8HR [facility] Rx#: [id number] Sodium Chloride 0.9% 1, 300 450 300 000 ml @ 50 mls/hr IV . Q20H [facility] Rx#:[id number] Vancomycin 2,500 mg In 501 Sodium Chloride 0.9% 500 ml @ 167 mls/hr IVPB ONCE ONE Rx#:[id number] Intake, IV Titration 218.5 447.928 455.087 Amount Diltiazem 125 mg In 88.417 Sodium Chloride 0.9% 100 ml @ 5 MG/HR 5 mls/hr IV .Q24H [facility] Rx#:[id number] Heparin Sodium,Porcine/ 359.511 275.587 D5w Pmx 25,000 unit In Dextrose/Water 1 500ml. bag @ 12 UNITS/KG/HR 43. 54 mls/hr IV .[id number] [facility] Rx#:[id number] Heparin Sodium,Porcine/ 218.5 D5w Pmx 25,000 unit In Dextrose/Water 1 500ml. bag @ 5.512 UNITS/KG/HR 20 mls/hr IV .Q24H [facility] Rx #:[id number] Piperacillin-Tazobactam 3 12.5 .375 gm In Dextrose/Water 1 50ml.bag @ 12.5 mls/hr IVPB Q8HR [facility] Rx#: [id number] Vancomycin 2,500 mg In 167 Sodium Chloride 0.9% 500 ml @ 167 mls/hr IVPB ONCE ONE Rx#:[id number] Oral 240 Output: Urine [phone] Other: Voiding Method Urinal Indwelling Catheter Weight 189.3 kg 184.6 kg Physical Exam: Revealed a relatively young obese white male, slightly confused, in no distress. Patient was on 6 L nasal cannula, and a change that to BiPAP. HEENT:[Neck is supple.] [No neck masses.] [No thyromegaly.] [No JVD.] Short obese neck is noted. Very narrow oropharynx noted. No stridor. Chest: [Crackles and rhonchi bilaterally, more so on the right lung..] Cardiac Exam: [Normal S1 and S2, no S3 gallop, 2/6 systolic murmur at the left lower sternal border. Abdomen: [Soft, nontender, no megaly, no rebound, no guarding, normal bowel sounds.] Extremities: [No clubbing, 1+ edema, no cyanosis.] Neurological Exam: Slight confusion, otherwise no other neurologic findings. Results - Laboratory Findings CBC and BMP: 12/01/16 05:00 12/01/16 12:44 ABG ABG pH 7.21 (7.35-7.45) L 12/01/16 08:48 ABG pCO2 101 mmHg (35-45) H* 12/01/16 08:48 ABG pO2 71 mmHg (83-108) L 12/01/16 08:48 ABG O2 Saturation 88.0 % (94-97) L 12/01/16 08:48 PT/INR, D-dimer PT 14.2 sec (9.0-12.0) H 11/30/16 05:02 INR 1.5 (<1.1) 11/30/16 05:02 Abnormal lab findings: Abnormal Labs 11/30/16 11/30/16 11/30/16 05:02 05:02 05:02 WBC 19.1 H Hgb 18.4 H Hct 58.6 H MCV 101.2 H MCHC Neutrophils # Neutrophils # (Manual) 18.3 H Lymphocytes # Lymphocytes # (Manual) 0.4 L PT 14.2 H APTT ABG pH ABG pCO2 ABG pO2 ABG HCO3 ABG Total CO2 ABG O2 Saturation Potassium Chloride 97 L Carbon Dioxide BUN 24 H Creatinine 0.60 L Glucose 200 H POC Glucose (mg/dL) Phosphorus Magnesium Urine Protein Urine Blood Ur Leukocyte Esterase Urine WBC Urine Bacteria Hyaline Casts Urine Mucus 11/30/16 11/30/16 11/30/16 17:36 20:51 22:04 WBC Hgb Hct MCV MCHC Neutrophils # Neutrophils # (Manual) Lymphocytes # Lymphocytes # (Manual) PT APTT 33.0 H ABG pH ABG pCO2 ABG pO2 ABG HCO3 ABG Total CO2 ABG O2 Saturation Potassium Chloride Carbon Dioxide BUN Creatinine Glucose POC Glucose (mg/dL) 133 H 192 H Phosphorus Magnesium Urine Protein Urine Blood Ur Leukocyte Esterase Urine WBC Urine Bacteria Hyaline Casts Urine Mucus 12/01/16 12/01/16 12/01/16 01:30 05:00 05:00 WBC 20.7 H Hgb Hct 56.5 H MCV 105.4 H MCHC 30.0 L Neutrophils # 18.7 H Neutrophils # (Manual) Lymphocytes # 0.9 L Lymphocytes # (Manual) PT APTT ABG pH ABG pCO2 ABG pO2 ABG HCO3 ABG Total CO2 ABG O2 Saturation Potassium 6.2 H* Chloride Carbon Dioxide 35 H BUN 36 H Creatinine Glucose 214 H POC Glucose (mg/dL) Phosphorus 5.4 H Magnesium 2.6 H Urine Protein Trace H Urine Blood Small H Ur Leukocyte Esterase Small H Urine WBC 7 H Urine Bacteria Rare H Hyaline Casts 7 H Urine Mucus Occasional H 12/01/16 12/01/16 12/01/16 05:00 07:37 08:48 WBC Hgb Hct MCV MCHC Neutrophils # Neutrophils # (Manual) Lymphocytes # Lymphocytes # (Manual) PT APTT 75.4 H ABG pH 7.21 L ABG pCO2 101 H* ABG pO2 71 L ABG HCO3 38 H ABG Total CO2 42 H ABG O2 Saturation 88.0 L Potassium Chloride Carbon Dioxide BUN Creatinine Glucose POC Glucose (mg/dL) 167 H Phosphorus Magnesium Urine Protein Urine Blood Ur Leukocyte Esterase Urine WBC Urine Bacteria Hyaline Casts Urine Mucus 12/01/16 12/01/16 12/01/16 11:01 11:21 12:09 WBC Hgb Hct MCV MCHC Neutrophils # Neutrophils # (Manual) Lymphocytes # Lymphocytes # (Manual) PT APTT 44.9 H ABG pH ABG pCO2 ABG pO2 ABG HCO3 ABG Total CO2 ABG O2 Saturation Potassium Chloride Carbon Dioxide BUN Creatinine Glucose POC Glucose (mg/dL) 200 H 172 H Phosphorus Magnesium Urine Protein Urine Blood Ur Leukocyte Esterase Urine WBC Urine Bacteria Hyaline Casts Urine Mucus - Diagnostic Findings Chest x-ray: image reviewed (Agree with reading as per radiology) Assessment and Plan Plan: Impression: Acute hypoxic and hypercapnic respiratory failure secondary to: Severe COPD, right sided pneumonia, community-acquired, mild congestive heart failure which is secondary to cardiac arrhythmia/atrial flutter on presentation , severe obstructive sleep apnea syndrome, obesity/hypoventilation syndrome, pulmonary hypertension History of noncompliance based on the fact that the patient had no further follow up with any physicians since his last previous admissions to [facility]. History of tobacco dependence syndrome patient was counseled regarding smoking cessation. Chronic hypoxia and polycythemia secondary to underlying COPD. Recommendation: Continue BiPAP, continue bronchodilators and diuretics, empiric antibiotics, cardiac meds to keep his cardiac rhythm under control, continue steroids, patient will be kept in the ICU for now, and will have a repeat ABG on his present BiPAP settings which are IPAP of 16 EPAP of 6 and FiO2 is being adjusted to keep his saturation above 90%. When time comes for discharging the patient, I believe the patient should easily qualify for BiPAP, and he will eventually need further studies including a sleep study on outpatient basis. Prognosis remains guarded. Critical care time is 40 minutes. Time with Patient: Greater than 30
[2016-12-01 16:56] LABS: Glucose,Whole Blood 185 mg/dL (75-99)
[2016-12-01] MEDS: BUDESONIDE 1 MG/2 ML NEBU INHALATION SCH (19:47)
[2016-12-01] MEDS: LEVOFLOXACIN 500MG-D5W PMX 500 MG in DEXTROSE/WATER 1 100ML.BAG IVPB SCH (20:39)
[2016-12-01 20:55] LABS: Glucose,Whole Blood 199 mg/dL (75-99)
[2016-12-01 22:41] LABS: ABG HCO3 44 mmol/L (21-25); ABG PCO2 86 mmHg (35-45); ABG PH 7.32 (7.35-7.45); ABG PO2 68 mmHg (83-108); ABG TCO2 46 mmol/L (19-24)
[2016-12-01 22:42] LABS: ABG Base Excess 16.8 mmol/L; ABG Oxygen Saturation 90.2 % (94-97)
[2016-12-02] MEDS: HEPARIN SODIUM,PORCINE/D5W PMX 25,000 UNIT in DEXTROSE/WATER 1 500ML.BAG IV SCH (05:22)
[2016-12-02] MEDS: methylPREDNISolone SOD SUCCI 125 MG/2 ML VIAL IV SCH ×4 (05:23→23:27)
[2016-12-02 05:54] LABS: Blood Urea Nitrogen 34 mg/dL (9-20); Calcium 8.5 mg/dL (8.4-10.2); Chloride 94 mmol/L (98-107); Glucose 166 mg/dL (74-99); Magnesium 2.3 mg/dL (1.6-2.3); Non-African American GFR(MDRD) >60 (>60 ml/min/1.73 sqM); Phosphorous 2.7 mg/dL (2.5-4.5); Potassium 4.4 mmol/L (3.5-5.1); Sodium 145 mmol/L (137-145)
[2016-12-02 06:00] LABS: Anion Gap 9 mmol/L
[2016-12-02 06:09] LABS: Carbon Dioxide 42 mmol/L (22-30)
[2016-12-02 06:36] LABS: Basophils % (A) 0 %; CH 30.2; CHCM 29.5; Eosinophils % (A) 0 %; HCT 53.4 % (39.0-53.0); HDW 2.71; HGB 16.1 gm/dL (13.0-17.5); Hypochromasia Marked; Luc # (Auto) 0.16; Luc % (Auto) 1; Lymphocytes # (A) 0.8 k/uL (1.0-4.8); Lymphocytes % (A) 5 %; MCH 31.1 pg (25.0-35.0); MCHC 30.1 g/dL (31.0-37.0); MCV 103.3 fL (80.0-100.0); Macrocytosis Slight; Mean Platelet Volume 7.2; Monocytes # (A) 0.6 k/uL (0-1.0); Monocytes % (A) 4 %; Neutrophils # (A) 14.1 k/uL (1.3-7.7); Neutrophils % (A) 90 %; RBC 5.17 m/uL (4.30-5.90); RDW 14.3 % (11.5-15.5); WBC 15.7 k/uL (3.8-10.6); WBC (Perox) 15.43
--- NOTE | 2016-12-02 07:12 | PN ---
Mr. Lopez is a 41-year-old male with morbid obesity, obstructive sleep apnea, who presented with symptoms of progressive dyspnea, had an episode of atrial flutter, subsequently converted back to sinus mechanism. He had episode of hypercapnia and he is on BiPAP. He continued to be in sinus mechanism and hemodynamically stable. He denies any chest pain. He is feeling more comfortable at this time. He is anxious to get the BiPAP off. He has no evidence of recurrent atrial flutter since his admission. He continues to be on furosemide 40 mg IV q.12 hours, IV heparin, IV Cardizem, lisinopril 5 mg daily, metoprolol tartrate 25 mg twice a day. PHYSICAL EXAMINATION: Blood pressure 152/60 with a heart in the 70s. Lungs with severe decrease in the air exchange. HEART: Regular rate and rhythm. S1, S2, no S3, no rub. ABDOMEN: Soft, obese, nontender. Extremities with decreased edema compared with yesterday. Chest x-ray shows the interstitial lung changes. The lab data revealed pH 7.21, pCO2 of 101, pO2 of 71. Potassium 6.2. BUN and creatinine 36 and 0.7. His hemoglobin is 17, white blood cell 20.7. IMPRESSION: 1. Respiratory failure with hypercapnic respiratory failure and severe obstructive sleep apnea. 2. Probably an element of fluid overload, most likely on the basis of diastolic dysfunction. I do not have an evaluation of his systolic function at this time. 3. Right-sided pneumonia. 4. Severe chronic obstructive pulmonary disease. 5. Morbid obesity. 6. History of chronic hypoxemia and polycythemia. 7. Hyperkalemia. RECOMMENDATION: Will obtain echocardiogram with Doppler, will continue the IV Lasix for another 24 hours. Follow his renal function and potassium and depending on his progress, further recommendations will be made.
[2016-12-02 07:30] LABS: Glucose,Whole Blood 152 mg/dL (75-99)
[2016-12-02] MEDS: LEVALBUTEROL NEB 1.25 MG/3 ML AMP INHALATION SCH ×3 (07:39→18:36)
[2016-12-02] MEDS: BUDESONIDE 1 MG/2 ML NEBU INHALATION SCH ×2 (07:39→18:36)
[2016-12-02] MEDS: PIPERACILLIN-TAZOBACTAM 3.375 GM in DEXTROSE/WATER 1 50ML.BAG IVPB SCH ×3 (07:42→23:33)
[2016-12-02] MEDS: SODIUM CHLORIDE 0.9% 1,000 ML IV SCH (07:51)
[2016-12-02] MEDS ORDERED: VANCOMYCIN TROUGH DUE 1 EACH MISC MISCELLANE ONE (08:00)
[2016-12-02] MEDS: INSULIN LISPRO (humaLOG) 300 UNIT/3 ML VIAL SQ SCH ×4 (08:05→23:27)
--- NOTE | 2016-12-02 08:57 | XR ---
EXAMINATION TYPE: XR chest 1V portable DATE OF EXAM: 12/02/2016 6:38 AM COMPARISON: 11/30/2016 HISTORY: Pneumonia TECHNIQUE: Single frontal view of the chest is obtained. FINDINGS: Patchy bilateral infiltrates demonstrate improvement with regard to the right upper lobe.. The heart is enlarged. No pneumothorax. Underlying venous congestion not excluded. IMPRESSION: 1. Patchy bilateral infiltrate with improvement in the right upper lobe. Correlate clinically to excl ude underlying venous congestion.
[2016-12-02] MEDS: FUROSEMIDE 10 MG/ML 4 ML VIAL IV SCH ×2 (09:30→21:25)
[2016-12-02] MEDS: LISINOPRIL 5 MG TAB PO SCH (09:31)
[2016-12-02] MEDS: VANCOMYCIN 2,500 MG in SODIUM CHLORIDE 0.9% 500 ML IVPB SCH ×2 (09:31→21:25)
[2016-12-02] MEDS: METOPROLOL TARTRATE 25 MG TAB PO SCH ×2 (09:31→21:25)
[2016-12-02] MEDS: PANTOPRAZOLE 40 MG TABLET PO SCH (09:31)
--- NOTE | 2016-12-02 10:22 | PN ---
DATE OF SERVICE: 12/01/2016 INTERVAL HISTORY: Mr. Lopez is a 41 -year-old male with known history of morbid obesity, obstructive sleep apnea, currently an everyday smoker admitted to the hospital with complaints of difficulty breathing, worsening for the past two days. Pulse ox was 70% on room air on admission. Patient also had brief atrial flutter while in the ER. Chest x-ray today showed persistent interstitial lung disease atelectasis, correlate to exclude pneumonia. The patient currently being treated with COPD exacerbation pneumonia and congestive heart failure, possibly due to atrial flutter on admission. Currently, patient is on BiPAP machine and tolerating well. Blood gases today showed pH of 7.21, pCO2 101, CO2 71 and bicarb is 38 which is low. REVIEW OF SYSTEMS: CONSTITUTIONAL: No fever. No chills. No weakness, malaise. RESPIRATORY: No cough or sputum production. The patient does have short of breath. CARDIOVASCULAR: No chest pain. The patient does have short of breath. No leg swelling. ABDOMEN: No nausea or vomiting, abdominal pain. GENITOURINARY: Negative. ENDOCRINE: Negative. SKIN: Negative. All other 14 point review of systems negative except as above. Current medications include: 1. Pulmicort. 2. Lasix. 3. Heparin IV. 4. Humalog. 5. Xopenex. 6. Levofloxacin. 7. Zestril. 8. Solu-Medrol. 9. Metoprolol. 10. Vancomycin. 11. Zosyn. PHYSICAL EXAMINATION: A 41-year-old male lying in bed. Awake, alert, oriented times three. Currently on BiPAP machine. VITALS: Blood pressure is 140/69, pulse is 66, respirations 18, temperature afebrile. Pulse ox is 94% on BIPAP, 75% FIO2. HEENT: Atraumatic. Normocephalic. Neck is supple. No JVD. CARDIOVASCULAR: S1, S2 heard. No murmurs or gallop. LUNGS: Bilateral diminished air entry. Rhonchi and wheezing positive. Nonlabored breathing. ABDOMEN: Soft, nontender, obese, bowel sounds present. CENTRAL NERVOUS SYSTEM: Awake, alert and oriented x3. No focal deficits. EXTREMITIES: Trace edema, pulse palpable bilaterally. No clubbing or cyanosis. PSYCHIATRIC: Cooperative. LABORATORY DATA: WBC 20.7, hemoglobin 17.0, platelets 245. Sodium 143, potassium 6.2, chloride 98, bicarb is 35, BUN 36, creatinine 0.7, magnesium 2.6, TSA 0.7, UA negative for infection. Chest x-ray report reviewed. IMPRESSION: 1. Acute hypoxic and hypercapnic respiratory failure secondary to pneumonia and chronic obstructive pulmonary disease exacerbation and congestive heart failure exacerbation as well chronic. 2. Acute chronic obstructive pulmonary disease exacerbation. 3. Acute congestive heart failure exacerbation ( ) atrial flutter on admission, currently maintained in sinus rhythm. 4. Morbid obesity. 5. Suspected obstructive sleep apnea. The patient was not able to follow up as an outpatient. 6. Morbid obesity with body mass index of 65. 7. Uncontrolled hypertension. 8. Hypertension. 9. Hyperlipidemia. 10. Elevated Troponin level likely due to atrial flutter. 11. Significant leukocytosis. 12. Hyperkalemia. 13. Polycythemia secondary to underlying chronic obstructive pulmonary disease. 14. Nicotine addiction. DISCUSSION AND PLAN: A 41 -year-old male admitted to the hospital with worsening short of breath. Will continue with the diuresis. IV Lasix. Continue the steroids and breathing treatments and continue the antibiotics in the form of vancomycin and Zosyn. The patient currently on BiPAP machine. Pulmonary is following the patient. We will continue the current management and further recommendations based on clinical course. Prognosis guarded.
--- NOTE | 2016-12-02 11:27 | P.PN ---
Subjective This is a pleasant 41-year-old gentleman who was admitted on 11/29/2016 with complaints of a 3 to four-day history of increasing shortness of breath cough and congestion. His initial pulse oximeter readings were in the 70s. He felt he did have a fever at home and had some episodes of diaphoresis. His chest x- ray revealed evidence of interstitial changes in the right lung suspicious for pneumonia along with some component of pulmonary edema. He was also found to be in atrial flutter and he was seen and evaluated yesterday by Dr. Manrique. He was found to be in hypercapnic and hypoxic respiratory failure with pCO2 as high as 100 and a pH down to 7.21. He had placed the patient on BiPAP. He initiated bronchodilators antibiotics steroids and diuretics. The patient is also morbidly obese with a BMI of 64.4. He has features of obstructive sleep apnea and was to have a follow-up following his previous admission but did not. Utilizing the BiPAP here in the intensive care unit still. He is on 15/05 with 75% FiO2 to maintain O2 saturations in the 90s. He's been on a heparin drip per weight base protocol for the atrial flutter. He is currently in normal sinus rhythm. He has a 0.9 at 50 mL per hour. His follow-up ABGs revealed a pO2 of 68 pCO2 86 pH 7.32. His chest x-ray continues to show bibasilar pneumonia and questionable CHF. Objective - Vital Signs Vital signs: Vital Signs Temp 98.2 F 12/02/16 08:00 Pulse 46 L 12/02/16 10:00 Resp 16 12/02/16 10:00 BP 176/76 12/02/16 10:00 Pulse Ox 91 L 12/02/16 10:00 Intake & Output 12/01/16 12/02/16 12/02/16 18:59 06:59 18:59 Intake Total 2275.400 2279.464 517.0 Output Total 3085 2085 665 Balance -809.600 194.464 -148.0 Weight 186.5 kg Intake: IV 965.9 1774.4 125 Diltiazem 125 mg In 25 Sodium Chloride 0.9% 100 ml @ 5 MG/HR 5 mls/hr IV .Q24H [facility] Rx#:[id number] Heparin Sodium,Porcine/ 440.9 524.4 0 D5w Pmx 25,000 unit In Dextrose/Water 1 500ml. bag @ 12 UNITS/KG/HR 43. 54 mls/hr IV .[id number] [facility] Rx#:[id number] Levofloxacin 500Mg-D5w 100 Pmx 500 mg In Dextrose/ Water 1 100ml.bag @ 100 mls/hr IVPB Q24H [facility] Rx#: [id number] Piperacillin-Tazobactam 3 100 .375 gm In Dextrose/Water 1 50ml.bag @ 12.5 mls/hr IVPB Q8HR [facility] Rx#: [id number] Sodium Chloride 0.9% 1, 500 550 125 000 ml @ 50 mls/hr IV . Q20H [facility] Rx#:[id number] Vancomycin 2,500 mg In 500 Sodium Chloride 0.9% 500 ml @ 167 mls/hr IVPB ONCE ONE Rx#:[id number] Intake, IV Titration 679.500 505.064 192.0 Amount Heparin Sodium,Porcine/ 500.000 505.064 D5w Pmx 25,000 unit In Dextrose/Water 1 500ml. bag @ 12 UNITS/KG/HR 43. 54 mls/hr IV .[id number] [facility] Rx#:[id number] Piperacillin-Tazobactam 3 12.5 25.0 .375 gm In Dextrose/Water 1 50ml.bag @ 12.5 mls/hr IVPB Q8HR [facility] Rx#: [id number] Vancomycin 2,500 mg In 167 Sodium Chloride 0.9% 500 ml @ 167 mls/hr IVPB ONCE ONE Rx#:[id number] Vancomycin 2,500 mg In 167 Sodium Chloride 0.9% 500 ml @ 167 mls/hr IVPB Q12HR [facility] Rx#:[id number] Oral 630 200 Output: Urine 3085 2085 665 Other: Voiding Method Indwelling Catheter Indwelling Catheter Indwelling Catheter - Exam GENERAL EXAM: Morbidly obese. Alert, comfortable in no apparent distress. HEAD: Normocephalic. EYES: Normal reaction of pupils, equal size. NOSE: Clear with pink turbinates. THROAT: There is crowding of the posterior pharynx. No erythema or exudates. NECK: Short. No masses, no JVD. CHEST: No chest wall deformity. LUNGS: Equal air entry with faint end expiratory wheeze. Crackles in the posterior bases. Diminished. CVS: S1 and S2 normal with no audible murmurs, regular rhythm. ABDOMEN: Obese. Normal bowel sounds, no guarding or rigidity. SPINE: No scoliosis or deformity SKIN: No rashes CENTRAL NERVOUS SYSTEM: No focal deficits, tone is normal in all 4 extremities. Extremities: There is trace peripheral edema. No clubbing, no cyanosis. Peripheral pulses are intact. - Labs CBC & Chem 7: 12/02/16 04:48 12/02/16 04:48 Labs: Abnormal Lab Results - Last 24 Hours (Table) 12/01/16 12/01/16 12/01/16 Range/Units 11:21 12:09 16:54 WBC (3.8-10.6) k/uL Hct (39.0-53.0) % MCV (80.0-100.0) fL MCHC (31.0-37.0) g/dL Neutrophils # (1.3-7.7) k/uL Lymphocytes # (1.0-4.8) k/uL APTT 44.9 H (22.0-30.0) sec ABG pH (7.35-7.45) ABG pCO2 (35-45) mmHg ABG pO2 (83-108) mmHg ABG HCO3 (21-25) mmol/L ABG Total CO2 (19-24) mmol/L ABG O2 Saturation (94-97) % Chloride (98-107) mmol/L Carbon Dioxide (22-30) mmol/L BUN (9-20) mg/dL Glucose (74-99) mg/dL POC Glucose (mg/dL) 172 H 185 H (75-99) mg/dL 12/01/16 12/01/16 12/01/16 Range/Units 19:57 20:54 22:30 WBC (3.8-10.6) k/uL Hct (39.0-53.0) % MCV (80.0-100.0) fL MCHC (31.0-37.0) g/dL Neutrophils # (1.3-7.7) k/uL Lymphocytes # (1.0-4.8) k/uL APTT 57.2 H (22.0-30.0) sec ABG pH 7.32 L (7.35-7.45) ABG pCO2 86 H* (35-45) mmHg ABG pO2 68 L (83-108) mmHg ABG HCO3 44 H* (21-25) mmol/L ABG Total CO2 46 H (19-24) mmol/L ABG O2 Saturation 90.2 L (94-97) % Chloride (98-107) mmol/L Carbon Dioxide (22-30) mmol/L BUN (9-20) mg/dL Glucose (74-99) mg/dL POC Glucose (mg/dL) 199 H (75-99) mg/dL 12/02/16 12/02/16 12/02/16 Range/Units 04:48 04:48 04:48 WBC 15.7 H (3.8-10.6) k/uL Hct 53.4 H (39.0-53.0) % MCV 103.3 H (80.0-100.0) fL MCHC 30.1 L (31.0-37.0) g/dL Neutrophils # 14.1 H (1.3-7.7) k/uL Lymphocytes # 0.8 L (1.0-4.8) k/uL APTT 103.1 H* (22.0-30.0) sec ABG pH (7.35-7.45) ABG pCO2 (35-45) mmHg ABG pO2 (83-108) mmHg ABG HCO3 (21-25) mmol/L ABG Total CO2 (19-24) mmol/L ABG O2 Saturation (94-97) % Chloride 94 L (98-107) mmol/L Carbon Dioxide 42 H* (22-30) mmol/L BUN 34 H (9-20) mg/dL Glucose 166 H (74-99) mg/dL POC Glucose (mg/dL) (75-99) mg/dL 12/02/16 Range/Units 07:29 WBC (3.8-10.6) k/uL Hct (39.0-53.0) % MCV (80.0-100.0) fL MCHC (31.0-37.0) g/dL Neutrophils # (1.3-7.7) k/uL Lymphocytes # (1.0-4.8) k/uL APTT (22.0-30.0) sec ABG pH (7.35-7.45) ABG pCO2 (35-45) mmHg ABG pO2 (83-108) mmHg ABG HCO3 (21-25) mmol/L ABG Total CO2 (19-24) mmol/L ABG O2 Saturation (94-97) % Chloride (98-107) mmol/L Carbon Dioxide (22-30) mmol/L BUN (9-20) mg/dL Glucose (74-99) mg/dL POC Glucose (mg/dL) 152 H (75-99) mg/dL Microbiology - Last 24 Hours (Table) 12/01/16 13:20 Gram Stain - Preliminary Sputum Sputum Culture - Preliminary Assessment and Plan Plan: Impression: #1 Acute exacerbation of severe chronic obstructive pulmonary disease, complicated by right sided community-acquired pneumonia and some mild congestive heart failure secondary to diastolic dysfunction. #2 Acute hypercapnic respiratory failure secondary to above. #3 Acute hypoxemic respiratory failure secondary to above. #4 Obesity/hypoventilation syndrome was suspected obstructive sleep apnea. #5 Pulmonary hypertension, mild, RVSP 34.49 mmHg.. #6 Atrial flutter, currently in normal sinus rhythm. #7 Chronic and ongoing tobacco dependence. #8 Polycythemia secondary to chronic hypoxia and underlying COPD. Plan: The patient was seen and evaluated by Dr. Angela. His chest x-ray, ABGs and labs were reviewed. We'll continue to titrate down the FiO2 while maintaining O2 saturations greater than 88%. We'll continue with BiPAP support as necessary. We'll continue with his current pulmonary medications including bronchodilators, IV Solu-Medrol, antibiotics in the form of vancomycin, Zosyn and Levaquin. We'll continue to diurese the patient as well. We will continue to follow and make further recommendations based on his clinical status.
[2016-12-02 11:37] LABS: Glucose,Whole Blood 193 mg/dL (75-99)
--- NOTE | 2016-12-02 12:29 | ECHOF ---
Referral Reason:atrial flutter MEASUREMENTS -------- HEIGHT: 170.2 cm WEIGHT: 186.4 kg BP: 156/73 IVSd: 1.3 cm (0.6 - 1.1) LVIDd: 4.2 cm (3.9 - 5.3) LVPWd: 1.5 cm (0.6 - 1.1) IVSs: 2.2 cm LVIDs: 2.2 cm LVPWs: 2.1 cm Ao Diam: 3.4 cm (2.0 - 3.7) AV Cusp: 1.9 cm (1.5 - 2.6) LA Diam: 4.4 cm (2.7 - 3.8) MV EXCURSION: 13.883 mm (> 18.000) MV EF SLOPE: 115 mm/s (70 - 150) EPSS: 1.3 cm MV E Saroj: 0.62 m/s MV DecT: 360 ms MV A Saroj: 0.41 m/s MV E/A Ratio: 1.49 RAP: 5.00 mmHg RVSP: 10.90 mmHg FINDINGS -------- Sinus rhythm. This was a technically difficult study with suboptimal views. Morbid Obesity There is moderate concentric left ventricular hypertrophy. Overall left ventricular systolic function is normal with, an EF between 55 - 60 %. The RV was not well visualized. The left atrium is normal in size. The right atrium was not well visualized. 1.5mg of Definity was utilized for enhancement of images The aortic valve was not well visualized. There is trace mitral regurgitation. Trace tricuspid regurgitation present. The right ventricular systolic pressure, as measured by Doppler, is 10.90mmHg. The pulmonic valve was not well visualized. The pericardium is normal. CONCLUSIONS -------- 1. Sinus rhythm. 2. The aortic valve was not well visualized. 3. There is trace mitral regurgitation. 4. Trace tricuspid regurgitation present. 5. The right ventricular systolic pressure, as measured by Doppler, is 10.90mmHg. 6. The pulmonic valve was not well visualized. 7. The pericardium is normal. 8. This was a technically difficult study with suboptimal views. 9. Morbid Obesity 10. There is moderate concentric left ventricular hypertrophy. 11. Overall left ventricular systolic function is normal with, an EF between 55 - 60 %. 12. The RV was not well visualized. 13. The left atrium is normal in size. 14. The right atrium was not well visualized. 15. 1.5mg of Definity was utilized for enhancement of images [employer] HEAD: Bere Gutierrez RDCS
[2016-12-02] MEDS ORDERED: LISINOPRIL 5 MG TAB PO STA (13:20)
[2016-12-02 16:58] LABS: Glucose,Whole Blood 203 mg/dL (75-99)
--- NOTE | 2016-12-02 19:03 | P.PN ---
Subjective This 41-year-old obese gentleman with history of possible pickwickian syndrome was admitted with respiratory failure and hypercapnia. Patient also had atrial flutter with rapid ventricular response. Patient converted back to sinus rhythm. His respiratory status seemed to be improving. His maintaining sinus rhythm. He is not going to be anticoagulated. We will continue current medical therapy and will follow him as needed Objective - Vital Signs Vital signs: Vital Signs Temp 98.9 F 12/02/16 16:00 Pulse 78 12/02/16 18:55 Resp 24 12/02/16 18:00 BP 169/85 12/02/16 18:00 Pulse Ox 90 L 12/02/16 18:00 Intake & Output 12/02/16 12/02/16 12/03/16 06:59 18:59 06:59 Intake Total 2279.464 1376.0 Output Total 2085 2440 Balance 194.464 -1064.0 Weight 186.5 kg Intake: IV 1774.4 375 Heparin Sodium,Porcine/ 524.4 0 D5w Pmx 25,000 unit In Dextrose/Water 1 500ml. bag @ 12 UNITS/KG/HR 43. 54 mls/hr IV .[id number] [facility] Rx#:[id number] Levofloxacin 500Mg-D5w 100 Pmx 500 mg In Dextrose/ Water 1 100ml.bag @ 100 mls/hr IVPB Q24H [facility] Rx#: [id number] Piperacillin-Tazobactam 3 100 .375 gm In Dextrose/Water 1 50ml.bag @ 12.5 mls/hr IVPB Q8HR [facility] Rx#: [id number] Sodium Chloride 0.9% 1, 550 375 000 ml @ 50 mls/hr IV . Q20H [facility] Rx#:[id number] Vancomycin 2,500 mg In 500 Sodium Chloride 0.9% 500 ml @ 167 mls/hr IVPB ONCE ONE Rx#:[id number] Intake, IV Titration 505.064 576.0 Amount Heparin Sodium,Porcine/ 505.064 0 D5w Pmx 25,000 unit In Dextrose/Water 1 500ml. bag @ 12 UNITS/KG/HR 43. 54 mls/hr IV .[id number] [facility] Rx#:[id number] Piperacillin-Tazobactam 3 75.0 .375 gm In Dextrose/Water 1 50ml.bag @ 12.5 mls/hr IVPB Q8HR [facility] Rx#: [id number] Vancomycin 2,500 mg In 501 Sodium Chloride 0.9% 500 ml @ 167 mls/hr IVPB Q12HR [facility] Rx#:[id number] Oral 425 Output: Urine 2085 2440 Other: Voiding Method Indwelling Catheter Indwelling Catheter - Exam GENERAL EXAM: Patient is alert and oriented HEENT: Normocephalic. Normal reaction of pupils, equal size, normal range of extraocular motion. No erythema or exudates in the throat. NECK: No masses, no nuchal rigidity. CHEST: No chest wall deformity. LUNGS: Expiratory wheezes and rhonchi HEART: S1 and S2 normal with no audible mumurs or gallops. Regular rhythm, femorals equal on both sides.. ABDOMEN: No hepatosplenomegaly, normal bowel sounds, no guarding or rigidity. SKIN: No rashes CENTRAL NERVOUS SYSTEM: No focal deficits. EXTREMITIES: edema. - Labs CBC & Chem 7: 12/02/16 04:48 12/02/16 04:48 Labs: Abnormal Lab Results - Last 24 Hours (Table) 12/01/16 12/01/16 12/01/16 Range/Units 19:57 20:54 22:30 WBC (3.8-10.6) k/uL Hct (39.0-53.0) % MCV (80.0-100.0) fL MCHC (31.0-37.0) g/dL Neutrophils # (1.3-7.7) k/uL Lymphocytes # (1.0-4.8) k/uL APTT 57.2 H (22.0-30.0) sec ABG pH 7.32 L (7.35-7.45) ABG pCO2 86 H* (35-45) mmHg ABG pO2 68 L (83-108) mmHg ABG HCO3 44 H* (21-25) mmol/L ABG Total CO2 46 H (19-24) mmol/L ABG O2 Saturation 90.2 L (94-97) % Chloride (98-107) mmol/L Carbon Dioxide (22-30) mmol/L BUN (9-20) mg/dL Glucose (74-99) mg/dL POC Glucose (mg/dL) 199 H (75-99) mg/dL 12/02/16 12/02/16 12/02/16 Range/Units 04:48 04:48 04:48 WBC 15.7 H (3.8-10.6) k/uL Hct 53.4 H (39.0-53.0) % MCV 103.3 H (80.0-100.0) fL MCHC 30.1 L (31.0-37.0) g/dL Neutrophils # 14.1 H (1.3-7.7) k/uL Lymphocytes # 0.8 L (1.0-4.8) k/uL APTT 103.1 H* (22.0-30.0) sec ABG pH (7.35-7.45) ABG pCO2 (35-45) mmHg ABG pO2 (83-108) mmHg ABG HCO3 (21-25) mmol/L ABG Total CO2 (19-24) mmol/L ABG O2 Saturation (94-97) % Chloride 94 L (98-107) mmol/L Carbon Dioxide 42 H* (22-30) mmol/L BUN 34 H (9-20) mg/dL Glucose 166 H (74-99) mg/dL POC Glucose (mg/dL) (75-99) mg/dL 12/02/16 12/02/16 12/02/16 Range/Units 07:29 11:36 16:55 WBC (3.8-10.6) k/uL Hct (39.0-53.0) % MCV (80.0-100.0) fL MCHC (31.0-37.0) g/dL Neutrophils # (1.3-7.7) k/uL Lymphocytes # (1.0-4.8) k/uL APTT (22.0-30.0) sec ABG pH (7.35-7.45) ABG pCO2 (35-45) mmHg ABG pO2 (83-108) mmHg ABG HCO3 (21-25) mmol/L ABG Total CO2 (19-24) mmol/L ABG O2 Saturation (94-97) % Chloride (98-107) mmol/L Carbon Dioxide (22-30) mmol/L BUN (9-20) mg/dL Glucose (74-99) mg/dL POC Glucose (mg/dL) 152 H 193 H 203 H (75-99) mg/dL Microbiology - Last 24 Hours (Table) 12/01/16 13:20 Gram Stain - Preliminary Sputum Sputum Culture - Preliminary Assessment and Plan (1) Atrial flutter with rapid ventricular response Status: Acute (2) COPD (chronic obstructive pulmonary disease) Status: Acute (3) Elevated troponin Status: Acute (4) Cellulitis of left thigh Status: Acute Plan: Patient is back in sinus rhythm. Echocardiogram showed preserved LV function. Patient is advised to continue current medical therapy. His respiratory status improved gradually improving. We'll follow him as needed.
[2016-12-02] MEDS: LEVOFLOXACIN 500MG-D5W PMX 500 MG in DEXTROSE/WATER 1 100ML.BAG IVPB SCH (21:25)
[2016-12-02 23:27] LABS: Glucose,Whole Blood 151 mg/dL (75-99)
[2016-12-03 05:02] LABS: Basophils # (A) 0.1 k/uL (0-0.2); Basophils % (A) 1 %; CH 30.8; CHCM 30.7; Eosinophils # (A) 0.1 k/uL (0-0.7); Eosinophils % (A) 1 %; HCT 58.9 % (39.0-53.0); HDW 2.68; HGB 17.7 gm/dL (13.0-17.5); Hypochromasia Moderate; Luc # (Auto) 0.25; Luc % (Auto) 2; Lymphocytes # (A) 0.9 k/uL (1.0-4.8); Lymphocytes % (A) 6 %; MCH 30.4 pg (25.0-35.0); MCHC 30.1 g/dL (31.0-37.0); MCV 101.1 fL (80.0-100.0); Macrocytosis Slight; Mean Platelet Volume 7.7; Monocytes # (A) 0.6 k/uL (0-1.0); Monocytes % (A) 4 %; Neutrophils # (A) 13.6 k/uL (1.3-7.7); Neutrophils % (A) 88 %; RBC 5.83 m/uL (4.30-5.90); RDW 14.4 % (11.5-15.5); WBC 15.6 k/uL (3.8-10.6); WBC (Perox) 16.48
[2016-12-03 05:06] LABS: INR 1.4 (<1.1); Prothrombin Time 13.9 sec (9.0-12.0)
[2016-12-03 05:17] LABS: Blood Urea Nitrogen 41 mg/dL (9-20); Calcium 9.2 mg/dL (8.4-10.2); Chloride 92 mmol/L (98-107); Glucose 185 mg/dL (74-99); Magnesium 2.4 mg/dL (1.6-2.3); Non-African American GFR(MDRD) >60 (>60 ml/min/1.73 sqM); Phosphorous 3.9 mg/dL (2.5-4.5); Potassium 4.1 mmol/L (3.5-5.1); Sodium 144 mmol/L (137-145)
[2016-12-03 05:24] LABS: Anion Gap 12 mmol/L
[2016-12-03 05:25] LABS: Carbon Dioxide 40 mmol/L (22-30)
[2016-12-03] MEDS: methylPREDNISolone SOD SUCCI 125 MG/2 ML VIAL IV SCH (06:07)
[2016-12-03] MEDS: SODIUM CHLORIDE 0.9% 1,000 ML IV SCH (06:08)
[2016-12-03 07:31] LABS: Glucose,Whole Blood 164 mg/dL (75-99)
[2016-12-03] MEDS: LEVALBUTEROL NEB 1.25 MG/3 ML AMP INHALATION SCH ×3 (07:35→18:57)
[2016-12-03] MEDS: BUDESONIDE 1 MG/2 ML NEBU INHALATION SCH (07:35)
[2016-12-03] MEDS: INSULIN LISPRO (humaLOG) 300 UNIT/3 ML VIAL SQ SCH ×4 (08:12→21:08)
[2016-12-03] MEDS: PIPERACILLIN-TAZOBACTAM 3.375 GM in DEXTROSE/WATER 1 50ML.BAG IVPB SCH (08:17)
[2016-12-03] MEDS: HEPARIN SODIUM,PORCINE 5,000 UNIT/ML 1 ML VIAL SQ SCH ×2 (08:17→16:33)
[2016-12-03] MEDS: PANTOPRAZOLE 40 MG TABLET PO SCH (08:18)
[2016-12-03] MEDS: METOPROLOL TARTRATE 25 MG TAB PO SCH ×2 (08:18→21:08)
[2016-12-03] MEDS: FUROSEMIDE 10 MG/ML 4 ML VIAL IV SCH (08:18)
[2016-12-03] MEDS: LISINOPRIL 10 MG TAB PO SCH (08:18)
[2016-12-03] MEDS: VANCOMYCIN 2,500 MG in SODIUM CHLORIDE 0.9% 500 ML IVPB SCH (08:19)
--- NOTE | 2016-12-03 10:06 | P.PN ---
Subjective Progress note dated 12/03/2016 Patient is doing much better today. The patient's currently up in the chair. He was earlier on some high flow date liters versus BiPAP at nighttime. Getting appointment 9 IV at 50 mL an hour. Anyway doing much much better sitting up in a chair. In my opinion he can be transferred out to the general medical floor. He was admitted on 1231 with complaints of 34 days history of increasing shortness of breath cough and congestion. His initial pulse oxes were in the 70s. Anyway the patient's again doing much better today. Objective - Vital Signs Vital signs: Vital Signs Temp 98.3 F 12/03/16 08:00 Pulse 69 12/03/16 09:00 Resp 21 12/03/16 09:00 BP 171/84 12/03/16 09:00 Pulse Ox 89 L 12/03/16 09:00 Intake & Output 12/02/16 12/03/16 12/03/16 18:59 06:59 18:59 Intake Total 1376.0 815.0 590 Output Total 2440 2200 435 Balance -1064.0 -1385 155 Weight 187.9 kg Intake: IV 375 550 150 Heparin Sodium,Porcine/ 0 D5w Pmx 25,000 unit In Dextrose/Water 1 500ml. bag @ 12 UNITS/KG/HR 43. 54 mls/hr IV .[id number] [facility] Rx#:[id number] Sodium Chloride 0.9% 1, 375 550 150 000 ml @ 50 mls/hr IV . Q20H [facility] Rx#:[id number] Intake, IV Titration 576.0 25.0 Amount Heparin Sodium,Porcine/ 0 D5w Pmx 25,000 unit In Dextrose/Water 1 500ml. bag @ 12 UNITS/KG/HR 43. 54 mls/hr IV .[id number] [facility] Rx#:[id number] Piperacillin-Tazobactam 3 75.0 25.0 .375 gm In Dextrose/Water 1 50ml.bag @ 12.5 mls/hr IVPB Q8HR [facility] Rx#: [id number] Vancomycin 2,500 mg In 501 Sodium Chloride 0.9% 500 ml @ 167 mls/hr IVPB Q12HR [facility] Rx#:[id number] Oral 425 240 440 Output: Urine 2440 2200 435 Other: Voiding Method Indwelling Catheter Indwelling Catheter # Bowel Movements 1 - Exam No acute distress, oriented 3. HEENT examination is grossly unremarkable. Next membranes are moist. No oral lesions. Supple. Full range of motion. Cardiovascular examination reveals regular rhythm rate. S1-S2 normal. Lungs reveal relatively clear breath sounds. A few scattered rhonchi. No crackles. Abdomen is obese. Bowel sounds are heard. Extremities reveal some mild edema. - Labs CBC & Chem 7: 12/03/16 04:35 12/03/16 04:35 Labs: Abnormal Lab Results - Last 24 Hours (Table) 12/02/16 12/02/16 12/02/16 Range/Units 11:36 16:55 23:26 WBC (3.8-10.6) k/uL Hgb (13.0-17.5) gm/dL Hct (39.0-53.0) % MCV (80.0-100.0) fL MCHC (31.0-37.0) g/dL Neutrophils # (1.3-7.7) k/uL Lymphocytes # (1.0-4.8) k/uL PT (9.0-12.0) sec Chloride (98-107) mmol/L Carbon Dioxide (22-30) mmol/L BUN (9-20) mg/dL Glucose (74-99) mg/dL POC Glucose (mg/dL) 193 H 203 H 151 H (75-99) mg/dL Magnesium (1.6-2.3) mg/dL 12/03/16 12/03/16 12/03/16 Range/Units 04:35 04:35 04:35 WBC 15.6 H (3.8-10.6) k/uL Hgb 17.7 H (13.0-17.5) gm/dL Hct 58.9 H (39.0-53.0) % MCV 101.1 H (80.0-100.0) fL MCHC 30.1 L (31.0-37.0) g/dL Neutrophils # 13.6 H (1.3-7.7) k/uL Lymphocytes # 0.9 L (1.0-4.8) k/uL PT 13.9 H (9.0-12.0) sec Chloride 92 L (98-107) mmol/L Carbon Dioxide 40 H* (22-30) mmol/L BUN 41 H (9-20) mg/dL Glucose 185 H (74-99) mg/dL POC Glucose (mg/dL) (75-99) mg/dL Magnesium 2.4 H (1.6-2.3) mg/dL 12/03/16 Range/Units 07:29 WBC (3.8-10.6) k/uL Hgb (13.0-17.5) gm/dL Hct (39.0-53.0) % MCV (80.0-100.0) fL MCHC (31.0-37.0) g/dL Neutrophils # (1.3-7.7) k/uL Lymphocytes # (1.0-4.8) k/uL PT (9.0-12.0) sec Chloride (98-107) mmol/L Carbon Dioxide (22-30) mmol/L BUN (9-20) mg/dL Glucose (74-99) mg/dL POC Glucose (mg/dL) 164 H (75-99) mg/dL Magnesium (1.6-2.3) mg/dL Assessment and Plan (1) Atrial flutter with rapid ventricular response Status: Acute (2) COPD (chronic obstructive pulmonary disease) Status: Acute (3) Interstitial pneumonia Status: Acute (4) Cellulitis of left thigh Status: Acute Plan: Planned for 12/03/2016 The patient can be transferred out to the floor. The patient is doing much better. We'll continue to allow him to sit up in bed. Medications ALLERGIES reviewed. X-rays and labs are reviewed. Additional recommendations suggestions are forthcoming. Overall the patient's situation is greatly improved. His right-sided pneumonia on chest x-ray in my opinion looks improved. Time with Patient: Less than 30
--- NOTE | 2016-12-03 10:21 | XR ---
EXAMINATION TYPE: XR chest 1V portable DATE OF EXAM: 12/03/2016 6:47 AM COMPARISON: Prior chest x-ray third of November 2016 HISTORY: Follow-up, abnormal chest x-ray TECHNIQUE: Single frontal view of the chest is obtained. FINDINGS: The heart remains enlarged. Patchy basilar density persists. No evident pneumothorax, ther e are overlying cardiac leads. Pulmonary vascularity and luis fernando are stable. IMPRESSION: Cardiomegaly, there may be basilar atelectasis versus airspace disease, difficult to excl ude effusion. Follow-up recommended.
--- NOTE | 2016-12-03 11:18 | PN ---
DATE OF SERVICE: 12/02/2016 INTERVAL HISTORY: Mr. Lopez is a 41-year-old male with known history of morbid obesity, obstructive sleep apnea suspected and currently an everyday smoker admitted to the hospital with complaints of difficulty breathing and hypoxic respiratory failure on admission. Patient also had brief atrial flutter/atrial fibrillation in the ER. Currently being treated for acute COPD exacerbation and congestive heart failure exacerbation. 2-D echocardiogram showed normal left ventricle function. Currently, patient is off BiPAP machine and currently saturating well on nasal cannula. Today, no fever. No chills. No acute overnight issues. REVIEW OF SYSTEMS: CONSTITUTIONAL: No fever. No chills. No weakness or malaise. RESPIRATORY: No cough or sputum production. Patient does have short of breath. CARDIOVASCULAR: No chest pain. Patient does have short of breath. No leg swelling. ABDOMEN: No nausea, vomiting or abdominal pain. GENITOURINARY: Negative. ENDOCRINE: Negative. PSYCHIATRIC: Negative. SKIN: Negative. All other fourteen-point review of systems negative except as above. CURRENT MEDICATIONS: Reviewed. PHYSICAL EXAMINATION: A 41-year-old male morbidly obese, lying on the bed comfortably, awake, alert, oriented x3, saturating well on nasal cannula. VITALS: Blood pressure is 181/84, pulse is 64, respiration 19, temperature afebrile, pulse ox 92% on 8 liters nasal cannula. HEENT: Atraumatic, normocephalic. Neck is supple. No JVD. CVS: S1, S2 heard. No murmurs, no gallop. LUNGS: Bilateral decreased air entry, diminished breath sounds bilateral basally. Nonlabored breathing. No wheezing. ABDOMEN: Soft, nontender, bowel sounds present. SUPERVISOR DEHYDROGENATION: Awake, alert and oriented x3. No focal neurologic deficits. Cranial nerves grossly intact. EXTREMITIES: No edema. Pulses palpable bilaterally. No clubbing or cyanosis. PSYCHIATRIC: Cooperative, nonsuicidal. LABORATORY DATA: WBC 15.7, hemoglobin 16.1, platelets are 224. Sodium 142, potassium 4.4, chloride 94, bicarb is 42, BUN 34, creatinine 0.7, calcium 8.5, magnesium 2.3. Chest x-ray showed patchy bilateral infiltrates with improvement in the right upper lobe, correlate clinically to exclude underlying venous congestion. IMPRESSION: 1. Acute hypoxic and hypercapnic respiratory failure secondary to pneumonia and chronic obstructive pulmonary disease exacerbation and congestive heart failure exacerbation as well. 2. Acute chronic obstructive pulmonary disease exacerbation. 3. Acute congestive heart failure exacerbation. 4. Likely atrial flutter on admission, currently maintained in sinus rhythm. A 2-D echo showed normal left ventricle function. 5. Morbid obesity. 6. Suspect obstructive sleep apnea. The patient was not able to follow up as an outpatient as recommended on the previous admission. 7. Morbid obesity with body mass index of 65. 8. Uncontrolled hypertension. 9. Hyperlipidemia. 10. Elevated, troponin level likely due to atrial flutter, unlikely acute coronary syndrome at this time. 11. Leukocytosis, improving. 12. Hyperkalemia, improved. 13. Polycythemia secondary to underlying chronic obstructive pulmonary disease. 14. Nicotine addiction. 15. Deep venous thrombosis prophylaxis. DISCUSSION AND PLAN: A 41-year-old male admitted to the hospital for worsening short of breath. Currently diuresing with IV Lasix. Continue the steroids, continue the antibiotics in the form of vancomycin and Zosyn. Currently off BiPAP machine and saturating well on nasal cannula. Will continue the current management. Will follow closely. Further recommendations based on the clinical course.
[2016-12-03 12:03] LABS: Glucose,Whole Blood 168 mg/dL (75-99)
[2016-12-03] MEDS: methylPREDNISolone SOD SUCCI 40 MG/ML 1 ML VIAL IV SCH ×2 (13:28→17:58)
[2016-12-03] MEDS: FUROSEMIDE 40 MG TAB PO SCH (16:34)
[2016-12-03 17:22] LABS: Glucose,Whole Blood 203 mg/dL (75-99)
[2016-12-03] MEDS ORDERED: LEVOFLOXACIN 500 MG TAB PO SCH (18:00)
[2016-12-03 20:54] LABS: Glucose,Whole Blood 164 mg/dL (75-99)
[2016-12-03] MEDS ORDERED: ARTIFICIAL TEARS-HYPROMELLOSE DROPS 15 ML BTL BOTH EYES PRN (21:06)
[2016-12-04] MEDS: HEPARIN SODIUM,PORCINE 5,000 UNIT/ML 1 ML VIAL SQ SCH ×2 (00:44→07:58)
[2016-12-04] MEDS: methylPREDNISolone SOD SUCCI 40 MG/ML 1 ML VIAL IV SCH ×2 (00:44→05:08)
[2016-12-04] MEDS: SODIUM CHLORIDE 0.9% 1,000 ML IV SCH (00:51)
[2016-12-04 04:40] LABS: Basophils # (A) 0.1 k/uL (0-0.2); Basophils % (A) 1 %; CH 31.1; CHCM 31.7; Eosinophils # (A) 0.1 k/uL (0-0.7); Eosinophils % (A) 1 %; HCT 55.3 % (39.0-53.0); HDW 2.66; Hypochromasia Slight; Luc # (Auto) 0.24; Luc % (Auto) 2; Lymphocytes # (A) 0.7 k/uL (1.0-4.8); Lymphocytes % (A) 6 %; MCH 30.3 pg (25.0-35.0); MCHC 30.7 g/dL (31.0-37.0); MCV 98.7 fL (80.0-100.0); Mean Platelet Volume 7.4; Monocytes # (A) 0.5 k/uL (0-1.0); Monocytes % (A) 4 %; Neutrophils # (A) 11.1 k/uL (1.3-7.7); Neutrophils % (A) 87 %; RDW 14.7 % (11.5-15.5); WBC 12.7 k/uL (3.8-10.6); WBC (Perox) 13.69
[2016-12-04 04:56] LABS: INR 1.3 (<1.1); Prothrombin Time 12.7 sec (9.0-12.0)
[2016-12-04 04:59] LABS: Blood Urea Nitrogen 44 mg/dL (9-20); Calcium 9.1 mg/dL (8.4-10.2); Chloride 92 mmol/L (98-107); Glucose 187 mg/dL (74-99); Magnesium 2.5 mg/dL (1.6-2.3); Non-African American GFR(MDRD) >60 (>60 ml/min/1.73 sqM); Phosphorous 4.2 mg/dL (2.5-4.5); Potassium 4.3 mmol/L (3.5-5.1); Sodium 143 mmol/L (137-145)
[2016-12-04 05:06] LABS: Anion Gap 7 mmol/L
[2016-12-04 05:11] LABS: Carbon Dioxide 44 mmol/L (22-30)
[2016-12-04] MEDS: LEVALBUTEROL NEB 1.25 MG/3 ML AMP INHALATION SCH ×2 (07:29→12:38)
[2016-12-04 07:35] LABS: Glucose,Whole Blood 162 mg/dL (75-99)
--- NOTE | 2016-12-04 07:56 | XR ---
EXAMINATION TYPE: XR chest 1V portable DATE OF EXAM: 12/04/2016 6:32 AM COMPARISON: Prior chest x-ray four November 2016 HISTORY: Abnormal chest x-ray, follow-up TECHNIQUE: Single frontal view of the chest is obtained. FINDINGS: There is no significant interval change IMPRESSION: Cardiomegaly, basilar atelectasis versus possible airspace disease, follow-up
[2016-12-04 07:57] VITALS: BP 179/93; RESP 14; TEMP 97.8
[2016-12-04] MEDS: INSULIN LISPRO (humaLOG) 300 UNIT/3 ML VIAL SQ SCH (07:58)
[2016-12-04] MEDS: PANTOPRAZOLE 40 MG TABLET PO SCH (07:59)
[2016-12-04] MEDS: FUROSEMIDE 40 MG TAB PO SCH (07:59)
[2016-12-04] MEDS: METOPROLOL TARTRATE 25 MG TAB PO SCH (07:59)
[2016-12-04] MEDS: LISINOPRIL 10 MG TAB PO SCH (07:59)
--- NOTE | 2016-12-04 10:08 | PN ---
DATE OF SERVICE: 12/03/2016 This 41-year-old gentleman was admitted with acute hypoxic respiratory failure with possible pneumonia and chronic obstructive pulmonary disease has improved significantly. Patient is closely monitored in ICU. Patient followed by Dr. Angela and Cardiology also. The most recent chest x-ray done today showed cardiomegaly and bibasilar airspace disease also. PAST MEDICAL HISTORY: Reviewed. REVIEW OF SYSTEMS: CARDIOVASCULAR: No angina. RESPIRATORY: As mentioned earlier. GI: As mentioned earlier. : No dysuria. NERVOUS SYSTEM: No numbness or weakness. Current medications are reviewed and include: 1. Tylenol 650 q.4. 2. Lasix 40 mg b.i.d. 3. Heparin 5000 subcu q.8. 4. Humalog. 5. Xopenex t.i.d. 6. Levaquin 500 mg. 7. Zestril 10 mg daily. 9. Lopressor 25 mg p.o. b.i.d. 10. Narcan. 11. Protonix 40 mg b.i.d. PHYSICAL EXAMINATION: Patient is alert and oriented x3. Pulse 69, blood pressure 175/86, respirations normal, temperature 98.3, pulse ox 94% on 4-L. HEENT: Conjunctivae normal. NECK: No jugular venous distention. CARDIOVASCULAR: S1 and S2, muffled. RESPIRATORY: Breath sounds diminished at the bases. Bilateral scattered rhonchi and crackles. Expiratory wheezing also present. ABDOMEN: Soft, obese, nontender. LEGS: No edema, no swelling. NERVOUS SYSTEM: No focal deficits. LABS: WBC 15.6, MCV 101.1. Accu-Cheks are noted. ASSESSMENT: 1. Acute chronic obstructive pulmonary disease, acute exacerbation as well as pneumonia with acute hypoxic respiratory failure with congestive heart failure acute exacerbation. 2. Atrial flutter on admission currently normal sinus rhythm. A 2-D echo showed normal LV function. 3. Congestive heart failure with acute exacerbation, acute on chronic diastolic dysfunction. 4. Super morbid obesity. 5. Possible obstructive sleep apnea. 6. Body mass index of 65. 7. Uncontrolled hypertension, essential. 8. Hyperlipidemia. 9. Elevated troponin likely related to atrial flutter and unlikely acute coronary syndrome at this time. 11. Hyperkalemia. 12. Polycythemia secondary to underlying chronic obstructive pulmonary disease. 13. History of nicotine dependence. 14. Deep venous thrombosis prophylaxis. 15. FULL CODE. RECOMMENDATIONS AND DISCUSSION: In this 41-year-old gentleman who presented with multiple complex medical issues, we will monitor the patient closely. Continue the current medications and symptomatic treatment. Otherwise at this time, I would recommend to continue the current medications, continue with symptomatic treatment, continue with IV antibiotics, continue with bronchodilators. DVT prophylaxis. Continue the rest of the medications. Closely follow with Pulmonary. Guarded prognosis. IV steroids. Further recommendations to follow. MTDD
--- NOTE | 2016-12-04 10:56 | P.PN ---
Subjective This is a pleasant 41-year-old gentleman who was admitted on 11/29/2016 with complaints of a 3 to four-day history of increasing shortness of breath cough and congestion. His initial pulse oximeter readings were in the 70s. He felt he did have a fever at home and had some episodes of diaphoresis. His chest x- ray revealed evidence of interstitial changes in the right lung suspicious for pneumonia along with some component of pulmonary edema. He was also found to be in atrial flutter and he was seen and evaluated yesterday by Dr. Manrique. He was found to be in hypercapnic and hypoxic respiratory failure with pCO2 as high as 100 and a pH down to 7.21. He had placed the patient on BiPAP. He initiated bronchodilators antibiotics steroids and diuretics. The patient is also morbidly obese with a BMI of 64.4. He has features of obstructive sleep apnea and was to have a follow-up following his previous admission but did not. He is seen again today 12/04/2016 in follow-up. He is awake and alert in no acute distress. He denies any worsening shortness of breath, cough or congestion. He is maintaining good O2 saturations greater than 88% on room air. He is quite adamant about going home today. Objective - Vital Signs Vital signs: Vital Signs Temp 97.8 F 12/04/16 07:56 Pulse 68 12/04/16 08:00 Resp 14 12/04/16 08:00 BP 179/93 12/04/16 07:56 Pulse Ox 86 L 12/04/16 07:56 Intake & Output 12/03/16 12/04/16 12/04/16 18:59 06:59 18:59 Intake Total 2070.5 Output Total 2170 Balance -99.5 Weight 185.2 kg Intake: IV 450 Sodium Chloride 0.9% 1, 450 000 ml @ 50 mls/hr IV . Q20H TRACEY Rx#:[id number] Intake, IV Titration 705.5 Amount Piperacillin-Tazobactam 3 37.5 .375 gm In Dextrose/Water 1 50ml.bag @ 12.5 mls/hr IVPB Q8HR TRACEY Rx#: [id number] Vancomycin 2,500 mg In 668 Sodium Chloride 0.9% 500 ml @ 167 mls/hr IVPB Q12HR TRACEY Rx#:[id number] Oral 915 Output: Urine 2170 Other: Voiding Method Indwelling Catheter Indwelling Catheter Toilet # Voids 1 # Bowel Movements 1 - Exam GENERAL EXAM: Morbidly obese. Alert, comfortable in no apparent distress. HEAD: Normocephalic. EYES: Normal reaction of pupils, equal size. NOSE: Clear with pink turbinates. THROAT: There is crowding of the posterior pharynx. No erythema or exudates. NECK: Short. No masses, no JVD. CHEST: No chest wall deformity. LUNGS: Equal air entry with faint end expiratory wheeze. Diminished. CVS: S1 and S2 normal with no audible murmurs, regular rhythm. ABDOMEN: Obese. Normal bowel sounds, no guarding or rigidity. SPINE: No scoliosis or deformity SKIN: No rashes CENTRAL NERVOUS SYSTEM: No focal deficits, tone is normal in all 4 extremities. Extremities: There is trace peripheral edema. No clubbing, no cyanosis. Peripheral pulses are intact. - Labs CBC & Chem 7: 12/04/16 04:20 12/04/16 04:20 Labs: Abnormal Lab Results - Last 24 Hours (Table) 12/03/16 12/03/16 12/03/16 Range/Units 12:01 17:20 20:52 WBC (3.8-10.6) k/uL Hct (39.0-53.0) % MCHC (31.0-37.0) g/dL Neutrophils # (1.3-7.7) k/uL Lymphocytes # (1.0-4.8) k/uL PT (9.0-12.0) sec Chloride (98-107) mmol/L Carbon Dioxide (22-30) mmol/L BUN (9-20) mg/dL Glucose (74-99) mg/dL POC Glucose (mg/dL) 168 H 203 H 164 H (75-99) mg/dL Magnesium (1.6-2.3) mg/dL 12/04/16 12/04/16 12/04/16 Range/Units 04:20 04:20 04:20 WBC 12.7 H (3.8-10.6) k/uL Hct 55.3 H (39.0-53.0) % MCHC 30.7 L (31.0-37.0) g/dL Neutrophils # 11.1 H (1.3-7.7) k/uL Lymphocytes # 0.7 L (1.0-4.8) k/uL PT 12.7 H (9.0-12.0) sec Chloride 92 L (98-107) mmol/L Carbon Dioxide 44 H* (22-30) mmol/L BUN 44 H (9-20) mg/dL Glucose 187 H (74-99) mg/dL POC Glucose (mg/dL) (75-99) mg/dL Magnesium 2.5 H (1.6-2.3) mg/dL 12/04/16 Range/Units 07:33 WBC (3.8-10.6) k/uL Hct (39.0-53.0) % MCHC (31.0-37.0) g/dL Neutrophils # (1.3-7.7) k/uL Lymphocytes # (1.0-4.8) k/uL PT (9.0-12.0) sec Chloride (98-107) mmol/L Carbon Dioxide (22-30) mmol/L BUN (9-20) mg/dL Glucose (74-99) mg/dL POC Glucose (mg/dL) 162 H (75-99) mg/dL Magnesium (1.6-2.3) mg/dL Microbiology - Last 24 Hours (Table) 12/01/16 13:20 Gram Stain - Final Sputum Sputum Culture - Final Assessment and Plan Plan: Impression: #1 Acute exacerbation of severe chronic obstructive pulmonary disease, complicated by right sided community-acquired pneumonia and some mild congestive heart failure secondary to diastolic dysfunction. #2 Acute hypercapnic respiratory failure secondary to above. #3 Acute hypoxemic respiratory failure secondary to above. #4 Obesity/hypoventilation syndrome was suspected obstructive sleep apnea. #5 Pulmonary hypertension, mild, RVSP 34.49 mmHg.. #6 Atrial flutter, currently in normal sinus rhythm. #7 Chronic and ongoing tobacco dependence. #8 Polycythemia secondary to chronic hypoxia and underlying COPD. Plan: The patient was seen and evaluated by Dr. Angela. He is cleared for discharge home today. He is encouraged to follow-up in our office within one week's time. He'll need full pulmonary function testing to evaluate the severity of his COPD and make recommendations for maintenance medications. He also clearly has clinical indication of obstructive sleep apnea and will need a sleep study and be set up for CPAP in the outpatient setting. He'll complete a course of prednisone taper and oral antibiotics. He would benefit from both short and long acting bronchodilators as well.
[2016-12-04 12:12] LABS: Glucose,Whole Blood 163 mg/dL (75-99)
[2016-12-04 12:41] VITALS: PULSE 76
--- NOTE | 2016-12-05 14:32 | DS ---
DATE OF ADMISSION: 11/29/2016 DATE OF DISCHARGE: 12/04/2016 41-year-old gentleman with morbid obesity, obstructive sleep apnea, admitted for shortness of breath and was treated for atypical pneumonia and the patient is significantly doing well and patient is being discharged on azithromycin. My suspicion is I do not believe patient has systolic dysfunction, although I cannot rule out diastolic dysfunction. Patient was treated for that as well. Patient does have peripheral edema. I believe is mostly secondary to obesity and chronic venostasis and patient is being discharged today in stable medical condition to home. Patient will need a sleep study as an outpatient. Patient was seen and examined on the day of discharge. Vitals are stable. PHYSICAL EXAMINATION: GENERAL: Morbidly obese. Alert and oriented x3. HEENT: Pupils are round and equally reacting to light. EOMI. No scleral icterus. No conjunctival pallor. Normocephalic, atraumatic. No pharyngeal erythema. No thyromegaly. CARDIOVASCULAR: S1 and S2 present. No murmurs, rubs, or gallops. PULMONARY: Chest is clear to auscultation, no wheezing or crackles. ABDOMEN: Soft, nontender, nondistended, normoactive bowel sounds. No palpable organomegaly. MUSCULOSKELETAL: No joint swelling or deformity. EXTREMITIES: No cyanosis, clubbing, or pedal edema. NEUROLOGICAL: Gross neurological examination did not reveal any focal deficits. SKIN: No rashes. ASSESSMENT AND PLAN: 1. Acute hypoxic as well as hypercapnic respiratory failure secondary to pneumonia and chronic obstructive pulmonary disease exacerbation as well as restrictive lung disease from morbid obesity and sleep apnea. 2. Chronic obstructive pulmonary disease exacerbation. 3. Possibility of congestive heart failure, chronic diastolic dysfunction with acute exacerbation. 4. Atrial flutter on admission which improved at this point of time. 5. Morbid obesity. 6. Sleep apnea. 7. Hypertension newly diagnosed. 8. Hyperlipidemia. 9. Mildly elevated troponin secondary to atrial flutter rather than myocardial infarction. 10. Leukocytosis secondary to pneumonia. Patient will be discharged today. Please refer to my depart summary for further details of discharge medication. Patient will follow with Dr. Jarrod Angela on December 15 at 1:45 p.m., Dr. Gonzalez December 09, at 1:30. Activity as tolerated. Cardiac low calorie diet. Extensive counseling regarding morbid obesity was provided. Patient will be discharged today with Levaquin for 5 days and patient follow-ups as mentioned above. Spent greater than 35 minutes in total discharge process.
== END 2016-12-04 15:32 | disposition home or self-care (01) | DRG 190 ==
LOC: EC 18:16 → 6ICU 20:46
PROVIDERS: ADMIT Internal Medicine; ATTEND Internal Medicine
PROC: 0T9B70Z Drainage of Bladder with Drainage Device, Via Natural or Artificial Opening (ICD-10-PCS; principal; 2016-11-30)
DX: J44.0 Chronic obstructive pulmonary disease with (acute) lower respiratory infection (principal); I50.33 Acute on chronic diastolic (congestive) heart failure; J96.21 Acute and chronic respiratory failure with hypoxia; I27.2 Other secondary pulmonary hypertension; J18.9 Pneumonia, unspecified organism; Z68.44 Body mass index [BMI] 60.0-69.9, adult; E66.2 Morbid (severe) obesity with alveolar hypoventilation; I48.92 Unspecified atrial flutter; I11.0 Hypertensive heart disease with heart failure; J84.89 Other specified interstitial pulmonary diseases; J96.22 Acute and chronic respiratory failure with hypercapnia; J44.1 Chronic obstructive pulmonary disease with (acute) exacerbation; E87.5 Hyperkalemia; R74.8 Abnormal levels of other serum enzymes; E78.5 Hyperlipidemia, unspecified; D75.1 Secondary polycythemia; I45.10 Unspecified right bundle-branch block; F12.90 Cannabis use, unspecified, uncomplicated; R41.0 Disorientation, unspecified; F17.200 Nicotine dependence, unspecified, uncomplicated; Z86.14 Personal history of Methicillin resistant Staphylococcus aureus infection; Z88.5 Allergy status to narcotic agent; Z86.19 Personal history of other infectious and parasitic diseases; Z91.19 Patient's noncompliance with other medical treatment and regimen; Z82.49 Family history of ischemic heart disease and other diseases of the circulatory system; Z80.9 Family history of malignant neoplasm, unspecified; Z87.81 Personal history of (healed) traumatic fracture; Z80.7 Family history of other malignant neoplasms of lymphoid, hematopoietic and related tissues; Z71.6 Tobacco abuse counseling
CPT/HCPCS: 36415; 36600; 71010; 71020; 80048; 80053; 80202; 81001; 82550; 82553; 82805; 83036; 83735; 83880; 84100; 84132; 84443; 84484; 85025; 85610; 85730; 87040; 87070; 87205; 93005; 93306; 94640; 94660; 96365; 96366; 96367; 96375; 96376; 99285

== ENCOUNTER 2019-12-01 16:23 | Inpatient (IN) | payer BC ==
[2019-12-01] MEDS ORDERED: IBUPROFEN 600 MG TAB PO STA (20:48)
[2019-12-01] MEDS ORDERED: ACETAMINOPHEN TAB 500 MG TAB PO STA (20:48)
[2019-12-01] MEDS ORDERED: IPRATROPIUM-ALBUTEROL 3 ML NEB INHALATION STA (20:49)
--- NOTE | 2019-12-01 20:56 | ED ---
General Adult HPI - General Chief complaint: Upper Respiratory Infection Stated complaint: pneumonia Time Seen by Provider: 12/01/19 20:35 Source: patient Mode of arrival: ambulatory Limitations: no limitations - History of Present Illness Initial comments: 44-year-old male patient presents to the emergency department today for evaluation of cough, congestion, and occasional shortness of breath. Patient states his been feeling unwell since Thursday or Thursday. Patient states that he has been having fever and chills with this. Denies any sputum production. States that he does physical activity become short of breath that he does not have symptoms at rest. Patient denies history of smoking. Denies COPD or asthma. He was seen at urgent care earlier today was diagnosed with pneumonia and sent over for further evaluation. States his influenza testing was negative. Patient denies any recent rash, chest pain, abdominal pain, nausea, vomiting, diarrhea, constipation, back pain, numbness, tingling, dizziness, weakness, hematuria, dysuria, urinary urgency, urinary frequency, headache, visual changes, or any other complaints. - Related Data Home Medications Medication Instructions Recorded Confirmed Primatine Mist Tabs 1 tab PO Q4H PRN 04/29/16 11/30/16 Previous Rx's Medication Instructions Recorded Albuterol Sulfate [Proventil Hfa] 2 puff INHALATION Q6HR PRN #1 12/04/16 inhaler Artificial Tears-Hypromellose 2 drops BOTH EYES QID PRN #0 bottle 12/04/16 [Artificial Tear Drops] Furosemide [Lasix] 40 mg PO DAILY #30 tab 12/04/16 Ipratropium [place] [Atrovent Hfa] 2 puff INHALATION QID #1 inhaler 12/04/16 Levofloxacin [Levaquin] 500 mg PO Q24H #5 tab 12/04/16 Lisinopril [Zestril] 10 mg PO DAILY #30 tab 12/04/16 Metoprolol Tartrate [Lopressor] 25 mg PO BID #60 tab 12/04/16 Pantoprazole [Protonix] 40 mg PO DAILY #20 tablet. 12/04/16 predniSONE 10 mg PO DIRECTED #30 tab 12/04/16 Allergies Allergy/AdvReac Type Severity Reaction Status Date / Time hydromorphone [From Dilaudid] Allergy Unknown Verified 11/30/16 08:05 Review of Systems ROS Statement: Those systems with pertinent positive or pertinent negative responses have been documented in the HPI. ROS Other: All systems not noted in ROS Statement are negative. Past Medical History Past Medical History: No Reported History Additional Past Medical History / Comment(s): obesity, L thigh numbness on and off, bilateral lower extremity reddened skin, bilateral lower leg and pedal edema. History of Any Multi-Drug Resistant Organisms: None Reported Past Surgical History: Orthopedic Surgery Additional Past Surgical History / Comment(s): I&D R neck abscess, R humerus fx with plate. Past Anesthesia/Blood Transfusion Reactions: No Reported Reaction Past Psychological History: No Psychological Hx Reported Smoking Status: Current every day smoker Past Alcohol Use History: None Reported Past Drug Use History: None Reported - Past Family History Father Family Medical History: Cancer Additional Family Medical History / Comment(s): Father had lymphom treated with chemo. He is alive and in his 60's Mother Family Medical History: Myocardial Infarction (MS) Additional Family Medical History / Comment(s): Mother possibly of a MS at the age of 62. General Exam Limitations: no limitations General appearance: alert, in no apparent distress, other (This is a well- developed, well-nourished adult male patient in no acute distress. Vital signs upon presentation are temperature 99.7F, pulse 91, respirations 18, blood pressure 121/72.) ENT exam: Present: normal exam, normal oropharynx, mucous membranes moist, TM's normal bilaterally Respiratory exam: Present: normal lung sounds bilaterally. Absent: respiratory distress, wheezes, rales, rhonchi, stridor Cardiovascular Exam: Present: regular rate, normal rhythm, normal heart sounds. Absent: systolic murmur, diastolic murmur, rubs, gallop, clicks GI/Abdominal exam: Present: soft, normal bowel sounds. Absent: distended, tenderness, guarding, rebound, rigid Neurological exam: Present: alert, oriented X3, CN II-XII intact Psychiatric exam: Present: normal affect, normal mood Skin exam: Present: warm, dry, intact, normal color. Absent: rash Course Vital Signs 12/01/19 12/01/19 12/01/19 16:54 20:48 20:52 Temperature 99.7 F H 101.5 F H Pulse Rate 91 88 Respiratory 18 20 19 Rate Blood Pressure 121/72 137/69 O2 Sat by Pulse 93 L Oximetry 12/01/19 12/01/19 12/01/19 21:08 21:16 21:59 Temperature 98.8 F Pulse Rate 77 104 H 90 Respiratory 18 16 19 Rate Blood Pressure 137/69 O2 Sat by Pulse 93 L Oximetry 12/01/19 23:00 Temperature 100.7 F H Pulse Rate 67 Respiratory 19 Rate Blood Pressure 118/59 O2 Sat by Pulse 92 L Oximetry Medical Decision Making - Medical Decision Making 44-year-old male patient presents to the emergency department today for evaluation of possible pneumonia, increased shortness of breath, fever, and chills. Physical examination reveals decreased lung sounds. He is satting 88- 90% on room air. 93% with oxygen. He was positive for influenza A. Chest x- ray shows interstitial pneumonia. We'll start azithromycin and Rocephin. He will be given steroids, breathing treatments, and fluids. - Lab Data Result diagrams: 12/01/19 22:00 12/01/19 22:00 Lab Results 12/01/19 12/01/19 12/01/19 Range/Units 22:00 22:00 22:00 WBC 3.7 L (3.8-10.6) k/uL RBC 4.97 (4.30-5.90) m/uL Hgb 15.7 (13.0-17.5) gm/dL Hct 47.3 (39.0-53.0) % MCV 95.2 (80.0-100.0) fL MCH 31.5 (25.0-35.0) pg MCHC 33.1 (31.0-37.0) g/dL RDW 13.2 (11.5-15.5) % Plt Count 189 (150-450) k/uL Neutrophils % 67 % Lymphocytes % 21 % Monocytes % 7 % Eosinophils % 1 % Basophils % 2 % Neutrophils # 2.5 (1.3-7.7) k/uL Lymphocytes # 0.8 L (1.0-4.8) k/uL Monocytes # 0.3 (0-1.0) k/uL Eosinophils # 0.0 (0-0.7) k/uL Basophils # 0.1 (0-0.2) k/uL Sodium 136 L (137-145) mmol/L Potassium 3.8 (3.5-5.1) mmol/L Chloride 99 (98-107) mmol/L Carbon Dioxide 31 H (22-30) mmol/L Anion Gap 6 mmol/L BUN 18 (9-20) mg/dL Creatinine 0.76 (0.66-1.25) mg/dL Est GFR (CKD-EPI)AfAm >90 (>60 ml/min/1.73 sqM) Est GFR (CKD-EPI)NonAf >90 (>60 ml/min/1.73 sqM) Glucose 100 H (74-99) mg/dL Plasma Lactic Acid Nicholas 0.9 (0.7-2.0) mmol/L Calcium 8.4 (8.4-10.2) mg/dL Total Bilirubin 0.6 (0.2-1.3) mg/dL AST 47 (17-59) U/L ALT 20 (4-49) U/L Alkaline Phosphatase 90 (38-126) U/L Troponin I (0.000-0.034) ng/mL NT-Pro-B Natriuret Pep pg/mL Total Protein 6.6 (6.3-8.2) g/dL Albumin 3.7 (3.5-5.0) g/dL Influenza Type A RNA (Not Detectd) Influenza Type B (PCR) (Not Detectd) 12/01/19 12/01/19 12/01/19 Range/Units 22:00 22:00 23:00 WBC (3.8-10.6) k/uL RBC (4.30-5.90) m/uL Hgb (13.0-17.5) gm/dL Hct (39.0-53.0) % MCV (80.0-100.0) fL MCH (25.0-35.0) pg MCHC (31.0-37.0) g/dL RDW (11.5-15.5) % Plt Count (150-450) k/uL Neutrophils % % Lymphocytes % % Monocytes % % Eosinophils % % Basophils % % Neutrophils # (1.3-7.7) k/uL Lymphocytes # (1.0-4.8) k/uL Monocytes # (0-1.0) k/uL Eosinophils # (0-0.7) k/uL Basophils # (0-0.2) k/uL Sodium (137-145) mmol/L Potassium (3.5-5.1) mmol/L Chloride (98-107) mmol/L Carbon Dioxide (22-30) mmol/L Anion Gap mmol/L BUN (9-20) mg/dL Creatinine (0.66-1.25) mg/dL Est GFR (CKD-EPI)AfAm (>60 ml/min/1.73 sqM) Est GFR (CKD-EPI)NonAf (>60 ml/min/1.73 sqM) Glucose (74-99) mg/dL Plasma Lactic Acid Nicholas (0.7-2.0) mmol/L Calcium (8.4-10.2) mg/dL Total Bilirubin (0.2-1.3) mg/dL AST (17-59) U/L ALT (4-49) U/L Alkaline Phosphatase (38-126) U/L Troponin I <0.012 (0.000-0.034) ng/mL NT-Pro-B Natriuret Pep 35 pg/mL Total Protein (6.3-8.2) g/dL Albumin (3.5-5.0) g/dL Influenza Type A RNA Detected H (Not Detectd) Influenza Type B (PCR) Not Detected (Not Detectd) - Radiology Data Radiology results: report reviewed, image reviewed Two-view x-ray of the chest was obtained. Report reviewed in its entirety. Impression by Dr. Carrillo shows interstitial pneumonia unchanged compared to exam earlier today. Normal heart. Disposition Clinical Impression: Interstitial pneumonia, Influenza A Disposition: ADMITTED IP TO THIS HOSP Condition: Serious Referrals: None,Stated [Primary Care Provider] - 1-2 days Decision to Admit Reason: Admit from EC Decision Date: 12/01/19 Decision Time: 23:37
[2019-12-01 22:18] LABS: Basophils # (A) 0.1 k/uL (0-0.2); Basophils % (A) 2 %; Eosinophils % (A) 1 %; HCT 47.3 % (39.0-53.0); HGB 15.7 gm/dL (13.0-17.5); Lymphocytes # (A) 0.8 k/uL (1.0-4.8); Lymphocytes % (A) 21 %; MCH 31.5 pg (25.0-35.0); MCHC 33.1 g/dL (31.0-37.0); MCV 95.2 fL (80.0-100.0); Mean Platelet Volume 8.1; Monocytes # (A) 0.3 k/uL (0-1.0); Monocytes % (A) 7 %; Neutrophils # (A) 2.5 k/uL (1.3-7.7); Neutrophils % (A) 67 %; Platelet Count 189 k/uL (150-450); RBC 4.97 m/uL (4.30-5.90); RDW 13.2 % (11.5-15.5); WBC 3.7 k/uL (3.8-10.6)
[2019-12-01 22:28] LABS: ALT 20 U/L (4-49); AST 47 U/L (17-59); African American GFR (CKD) >90 (>60 ml/min/1.73 sqM); Albumin 3.7 g/dL (3.5-5.0); Alkaline Phosphatase 90 U/L (38-126); Anion Gap 6 mmol/L; Blood Urea Nitrogen 18 mg/dL (9-20); Calcium 8.4 mg/dL (8.4-10.2); Carbon Dioxide 31 mmol/L (22-30); Chloride 99 mmol/L (98-107); Glucose 100 mg/dL (74-99); Non-African American GFR(CKD) >90 (>60 ml/min/1.73 sqM); Potassium 3.8 mmol/L (3.5-5.1); Sodium 136 mmol/L (137-145); Total Bilirubin 0.6 mg/dL (0.2-1.3); Total Protein 6.6 g/dL (6.3-8.2)
[2019-12-01] MEDS ORDERED: SODIUM CHLORIDE 0.9% 1,000 ML IV ONE (23:12)
--- NOTE | 2019-12-01 23:24 | XR ---
EXAMINATION TYPE: XR chest 2V DATE OF EXAM: 12/01/2019 COMPARISON: Today HISTORY: Short of breath TECHNIQUE: 2 views FINDINGS: There is coarse interstitial infiltrates in both lungs. Heart size is normal. There is no p leural effusion. Bony thorax is intact. IMPRESSION: Interstitial pneumonia unchanged compared to exam earlier today. Normal heart.
[2019-12-01] MEDS ORDERED: AZITHROMYCIN 500 MG in SODIUM CHLORIDE 0.9% 250 ML IVPB STA (23:30)
[2019-12-01] MEDS ORDERED: methylPREDNISolone SOD SUCCI 125 MG/2 ML VIAL IV STA (23:34)
[2019-12-01] MEDS ORDERED: PNEUMONIA PROTOCOL UTILIZED 1 EACH MISC PO PRN (23:37)
[2019-12-01] MEDS ORDERED: IPRATROPIUM-ALBUTEROL 3 ML NEB INHALATION PRN (23:37)
[2019-12-02] MEDS ORDERED: OSELTAMIVIR 75 MG CAP PO STA
[2019-12-02] MEDS: methylPREDNISolone SOD SUCCI 125 MG/2 ML VIAL IV SCH ×5 (00:13→23:39)
[2019-12-02] MEDS: IPRATROPIUM-ALBUTEROL 3 ML NEB INHALATION SCH ×4 (08:30→21:25)
--- NOTE | 2019-12-02 10:05 | XR ---
EXAMINATION TYPE: XR chest 2V DATE OF EXAM: 12/02/2019 COMPARISON: 12/01/2019 TECHNIQUE: PA and lateral views submitted. HISTORY: Shortness of breath FINDINGS: Coarsened interstitial lung markings are seen with left lower lobe infiltrate. No pleural effusion or pneumothorax. Heart size stable. Osseous structures intact. IMPRESSION: 1. Left lower lobe infiltrate. Coarsened interstitium be associated with bronchitis, chronic intersti tial lung disease or interstitial pneumonitis.
--- NOTE | 2019-12-02 14:06 | HP ---
HISTORY AND PHYSICAL This is a 44-year-old white male who presents with cough, congestion, shortness of breath. Has been feeling well until Thursday or Thursday. He apparently had fever, chills, came to the hospital, was found to be positive for pneumonia and positive for the influenza, started on Tamiflu, IV antibiotics. Denies history of COPD or asthma. HOME MEDICATIONS: Include Primatene mist, HFA, Atrovent HFA, Lasix 40 mg daily, Levaquin 500 mg daily, Zestril 10 mg daily, Lopressor 25 b.i.d., Protonix 40 mg daily, prednisone taper. ALLERGIES: DILAUDID. 14-point review of systems as mentioned above. PAST MEDICAL HISTORY: Left leg numbness intermittent, bilateral lower extremity red skin, bilateral lower leg edema, obesity. He has had orthopedic surgery. He has had I and D on a right neck abscess, right humeral fracture of the plate. Current everyday smoker. No alcohol. No illicit drugs. FAMILY HISTORY: Father with cancer, lymphoma treated with chemo. Mother with myocardial infarction. PHYSICAL EXAM: Temp 99, pulse is 90s to 100s, respiratory 18 to 22, blood pressure is 120s/70s. HEENT: Normocephalic, atraumatic. LUNGS: Mild wheezes and rales and rhonchi. ABDOMEN: Soft, nontender. NEUROLOGIC: Cranial nerves intact. Endocrine BMI is over 40. SKIN: Warm, dry, and intact. No rashes. T-max 101.5, respiratory 18 to 25, O2 is 93 on room air, blood pressure 120s to 130s/60s to 70s. He is 89%-90% on room air in the ER, 93% with oxygen. He is positive for influenza A, interstitial pneumonia on chest x-ray. Started on azithromycin, Rocephin IV, continued that, continue IV steroids, breathing treatments, Tamiflu. Await Pulmonary consultation. MMODL / IJN: [id number] /
--- NOTE | 2019-12-02 19:54 | CONS ---
CONSULTATION DATE OF SERVICE: 12/02/2019 HISTORY OF PRESENT ILLNESS: Patient is a 44-year-old obese male who is seen lying in bed, is awake and alert. The patient states that on Thursday or Thursday of this week he started to experience achiness, headache, fever, chills, sweats, nausea, did not have any episodes of vomiting. The patient went to the urgent care clinic yesterday and on exam was found to have an O2 saturation of 84% and a chest x-ray was done which showed pneumonia. Subsequently, patient was sent to the emergency room at [facility] where patient states he waited 5 hours to be seen and almost left without being seen but was admitted with pneumonia. PAST MEDICAL HISTORY: Significant for obesity, left thigh numbness on and off, bilateral lower extremity reddened skin and bilateral lower leg and pedal edema. PAST SURGICAL HISTORY: Positive for orthopedic surgery, I and D of right neck abscess and right humerus repair. ALLERGIES: DILAUDID. MEDICATIONS: Patient takes at home include Primatene mist 1 tab p.o. q.4 hours p.r.n., Proventil HFA 2 puffs q.6 hours p.r.n., Artificial Tears 2 drops both eyes q.i.d. p.r.n., Lasix 40 mg p.o. daily, Atrovent HFA 2 puffs q.i.d., Zestril 10 mg p.o. daily, Lopressor 25 mg p.o. b.i.d., Protonix 40 mg p.o. daily, and prednisone 10 mg p.o. daily, unknown whether patient is still taking that. FAMILY HISTORY: Father is alive and well. Mother at 63 from [place]. SOCIAL HISTORY: Patient does have a history of smoking 2 packs per day or greater for 30 years. Quit smoking 2 or 3 months ago. Rarely drinks alcohol. Denies any illicit drug use. 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 REVIEW OF SYSTEMS: GENERAL: Positive for fever, decreased appetite, however, that has improved; chills, weight loss which has been intentional. HEENT: Significant for headache. Denies any acute visual changes. Denies any difficulty hearing. Does have seasonal allergies. Denies sore throat or difficulty swallowing. RESPIRATORY: Significant for exertional shortness of breath and a nonproductive cough. CARDIOVASCULAR: Negative for chest pain or palpitations. GI: Negative for abdominal pain. Nausea has resolved. Did have some loose stools prior to admission. Denies constipation. : Negative for dysuria or hematuria. ENDOCRINE: Negative for diabetes mellitus or thyroid disease. MUSCULOSKELETAL: Negative for any arthritic disease. NEUROLOGIC: Negative for any history of seizures. PSYCHIATRIC: Negative for depression or anxiety. PHYSICAL EXAM: GENERAL: A pleasant, obese male who is seen sitting up in bed, awake, alert, in no acute distress. VITAL SIGNS: Temp 98.1, heart rate 88, respiratory rate 18, blood pressure is 156/80, O2 saturation 92% on 3 L O2 via nasal cannula. HEENT: Head is normocephalic, atraumatic. Pupils equal, round, react to light. Ears, nose no discharge is noted. Mouth with moist mucous membranes. Mallampati is class 4 with a short thick neck. LUNGS: With diminished breath sounds and a coarse expiratory wheeze, worse on the right. HEART: S1, S2 heard. Not tachycardic. ABDOMEN: Soft, obese. Bowel sounds are heard. EXTREMITIES: With no edema. NEUROLOGIC: Patient is awake, alert, oriented. LABS: White count 3.7, hemoglobin 15.7, hematocrit 47.3 with 189,000 platelets. Sodium is 136, potassium is 3.8, chloride 99, CO2 is 31, anion gap is 6, BUN is 18, creatinine 0.76, glucose is 100. Lactic acid venous is 0.9, calcium is 8.4, total bilirubin 0.6, AST is 47, ALT is 20, alkaline phosphatase is 90. Troponin 0.012. BNP is 35. Total protein 6.6, albumin is 3.7. Influenza type A is positive. IMAGING: Chest x-ray shows left lower lobe infiltrate, coarsened interstitium associated with bronchitis, chronic interstitial lung disease or interstitial pneumonitis. IMPRESSION: 1. Left lower lobe pneumonia. 2. Interstitial lung disease which may be due to influenza A. 3. History of obstructive sleep apnea. PLAN: IV Solu-Medrol, bronchodilators, will add inhaled corticosteroids, IV antibiotics with azithromycin and Rocephin. Will order CPAP at 15 as patient is unsure what his settings are at home and does not have anybody that can bring his CPAP from home in to be worn during sleep. Will add GI and DVT prophylaxis. Patient will need a repeat chest x-ray or CT of chest in 4-6 weeks for further followup of the interstitial lung disease and resolution after influenza A. Thank you for the consultation. We will continue to follow patient closely with you making further changes as necessary. RACHEL / ASHLEYN: [id number] /
[2019-12-02] MEDS: HEPARIN SODIUM,PORCINE 5,000 UNIT/ML 1 ML VIAL SQ SCH (20:41)
[2019-12-02] MEDS: BUDESONIDE 0.5 MG/2 ML NEBU INHALATION SCH (21:25)
[2019-12-02] MEDS: AZITHROMYCIN 500 MG in SODIUM CHLORIDE 0.9% 250 ML IVPB SCH (23:39)
[2019-12-03] MEDS: methylPREDNISolone SOD SUCCI 125 MG/2 ML VIAL IV SCH ×3 (05:34→17:41)
[2019-12-03] MEDS: PANTOPRAZOLE 40 MG TABLET PO SCH (08:49)
[2019-12-03] MEDS: HEPARIN SODIUM,PORCINE 5,000 UNIT/ML 1 ML VIAL SQ SCH ×2 (08:59→21:56)
[2019-12-03] MEDS: IPRATROPIUM-ALBUTEROL 3 ML NEB INHALATION SCH ×4 (09:38→20:35)
[2019-12-03] MEDS: BUDESONIDE 0.5 MG/2 ML NEBU INHALATION SCH ×2 (09:38→20:35)
--- NOTE | 2019-12-03 13:04 | PN ---
PROGRESS NOTE He was seen on 12/03/2019. He has been hemodynamically stable. He continues to have shortness of breath and wheezing. On physical examination, his blood pressure is 143/83, respiratory rate of 18, pulse rate of 60, temperature 97.3, O2 saturation on CPAP was 90%. HEENT reveals no new changes. Chest with decreased breath sounds with prolonged expiration and expiratory wheeze. Cardiovascular system reveals an S1, S2. Abdomen is soft. There is no pedal edema. IMPRESSION: 1. Left lower zone pneumonia. 2. Interstitial lung disease secondary to influenza is likely. 3. Obstructive sleep apnea. Continue CPAP, steroids, bronchodilators, antibiotics. Continue GI and DVT prophylaxis. Recheck a CT of the chest and/or CAT scan in 4-6 weeks to ensure resolution of interstitial changes. Depending on how he does, we shall make further changes to his care. RACHEL / DELVIN: [id number] /
--- NOTE | 2019-12-03 21:27 | PN ---
PROGRESS NOTE 44-year-old white male who was admitted with interstitial pneumonia secondary to influenza. O2 saturation on CPAP was 90%, respiratory rate 16-18, pulse 60s, blood pressure 143/83. Lungs with prolonged expiratory wheeze. Cardiovascular: S1, S2. Abdomen is distended, obese. ASSESSMENT: 1. Left lower zone pneumonia. 2. Interstitial lung disease secondary to influenza. 3. Obstructive sleep apnea. Continue CPAP, steroids, bronchodilators, antibiotics, GI, DVT prophylaxis. Recheck CT of the chest in4-6 weeks to ensure resolution of interstitial changes. No discharge home until his oxygen improves. MMODL / IJN: [id number] /
[2019-12-03] MEDS: OSELTAMIVIR 75 MG CAP PO SCH (21:56)
[2019-12-04] MEDS: AZITHROMYCIN 500 MG in SODIUM CHLORIDE 0.9% 250 ML IVPB SCH (00:37)
[2019-12-04] MEDS: methylPREDNISolone SOD SUCCI 125 MG/2 ML VIAL IV SCH ×3 (00:38→13:36)
[2019-12-04 05:58] VITALS: BP 136/86; RESP 20; TEMP 97.7
[2019-12-04] MEDS: IPRATROPIUM-ALBUTEROL 3 ML NEB INHALATION SCH ×2 (08:31→11:55)
[2019-12-04] MEDS: BUDESONIDE 0.5 MG/2 ML NEBU INHALATION SCH (08:31)
[2019-12-04 08:53] LABS: Basophils % (A) 0 %; Eosinophils % (A) 0 %; HCT 49.9 % (39.0-53.0); HGB 15.9 gm/dL (13.0-17.5); Lymphocytes # (A) 0.9 k/uL (1.0-4.8); Lymphocytes % (A) 10 %; MCH 31.2 pg (25.0-35.0); MCHC 31.9 g/dL (31.0-37.0); MCV 97.7 fL (80.0-100.0); Monocytes # (A) 0.3 k/uL (0-1.0); Monocytes % (A) 4 %; Neutrophils # (A) 7.7 k/uL (1.3-7.7); Neutrophils % (A) 84 %; Platelet Count 206 k/uL (150-450); RDW 13.3 % (11.5-15.5); WBC 9.2 k/uL (3.8-10.6)
[2019-12-04 09:08] LABS: ALT 20 U/L (4-49); AST 34 U/L (17-59); African American GFR (CKD) >90 (>60 ml/min/1.73 sqM); Albumin 3.9 g/dL (3.5-5.0); Alkaline Phosphatase 71 U/L (38-126); Anion Gap 5 mmol/L; Blood Urea Nitrogen 20 mg/dL (9-20); Calcium 9.5 mg/dL (8.4-10.2); Carbon Dioxide 33 mmol/L (22-30); Chloride 102 mmol/L (98-107); Glucose 194 mg/dL (74-99); Non-African American GFR(CKD) >90 (>60 ml/min/1.73 sqM); Potassium 5.1 mmol/L (3.5-5.1); Sodium 140 mmol/L (137-145); Total Bilirubin 0.4 mg/dL (0.2-1.3); Total Protein 6.9 g/dL (6.3-8.2)
[2019-12-04] MEDS: HEPARIN SODIUM,PORCINE 5,000 UNIT/ML 1 ML VIAL SQ SCH (09:45)
[2019-12-04] MEDS: PANTOPRAZOLE 40 MG TABLET PO SCH (09:45)
[2019-12-04] MEDS: OSELTAMIVIR 75 MG CAP PO SCH (09:45)
[2019-12-04 13:59] VITALS: PULSE 84
--- NOTE | 2019-12-04 14:32 | PN ---
PROGRESS NOTE DATE OF SERVICE: 12/04/2019 He was seen again on November2019. He has been hemodynamically stable. He is less short of breath and is almost back to his baseline. He is sitting up in a chair. Awake and alert. On physical examination, his respiratory rate is 20, pulse rate 84, temperature 97.7, blood pressure 136/86, O2 saturation on 3 L by nasal cannula is 93%. HEENT is unremarkable. Chest reveals wheeze only on forced exhalation. Cardiovascular system is S1, S2. Abdomen is soft. There is no pedal edema. Blood cultures have been negative. IMPRESSION: At this time: 1. Left lower lobe pneumonia. 2. Interstitial changes, most likely secondary to influenza. 3. Obstructive sleep apnea. 4. Bronchospasm that is quite severe. Continue CPAP, bronchodilators. A tapering dose of steroids. I agree with possible discharge planning on him with close outpatient followup. MMGONZALO / DELVIN: [id number] /
--- NOTE | 2019-12-10 00:22 | DS ---
DISCHARGE SUMMARY ADMIT DATE: 12/03/2019. DISCHARGE DATE: 12/04/2019. MEDICATIONS: Ibuprofen 600 mg q.6 hours p.r.n. CONDITION: Stable. PROGNOSIS: Guarded. Ambulate as tolerated. This is a white male came in to the hospital with left lower lobe pneumonia, interstitial pneumonia, obstructive sleep apnea, bronchospasm. She was given CPAP for obstructive sleep apnea, bronchodilators, IV steroids. She improved over the next 24 to 48 hours, at which time she was discharged home to follow up as an outpatient. Cleared by vegetable washer and denial management representative. MMODL / IJN: [id number] /
== END 2019-12-04 14:41 | disposition home or self-care (01) | DRG 194 ==
LOC: EC 16:23 → 5NMEDONC 23:44 → OBSVTOIN 12-03 14:34
PROVIDERS: ADMIT Family Medicine; ATTEND Family Medicine
DX: J10.01 Influenza due to other identified influenza virus with the same other identified influenza virus pneumonia (principal); Z68.44 Body mass index [BMI] 60.0-69.9, adult; E66.9 Obesity, unspecified; F17.210 Nicotine dependence, cigarettes, uncomplicated; G47.33 Obstructive sleep apnea (adult) (pediatric); J98.01 Acute bronchospasm; R14.0 Abdominal distension (gaseous); Z79.899 Other long term (current) drug therapy; Z79.52 Long term (current) use of systemic steroids; Z88.5 Allergy status to narcotic agent; Z80.7 Family history of other malignant neoplasms of lymphoid, hematopoietic and related tissues; Z82.49 Family history of ischemic heart disease and other diseases of the circulatory system
CPT/HCPCS: 36415; 71046; 80053; 83605; 83880; 84484; 85025; 87040; 87502; 94640; 94660; 94760; 96365; 96375; 99285

== ENCOUNTER 2022-04-29 15:00 | Emergency (ER) | payer BC ==
[2022-04-29] MEDS ORDERED: IPRATROPIUM-ALBUTEROL 3 ML NEB INHALATION STA (16:13)
--- NOTE | 2022-04-29 16:18 | ED ---
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 States she has gained weight he says sure how much. No fevers chills nausea vomiting sweats or chest pain. He states he try to cut back from 2 packs a day down to less than a pack a day of cigarettes. Complaint: shortness of breath - Related Data Previous Rx's Medication Instructions Recorded Furosemide [Lasix] 20 mg PO DAILY #30 tab 04/29/22 Ipratropium/Albuterol Sulfate 2 puff INHALATION QID PRN #1 each 04/29/22 [Combivent Respimat Inhaler] predniSONE [Deltasone] 20 mg PO BID #10 tab 04/29/22 Allergies Allergy/AdvReac Type Severity Reaction Status Date / Time hydromorphone [From Dilaudid] Allergy Unknown Verified 04/29/22 17:24 Review of Systems ROS Statement: Those systems with pertinent positive or pertinent negative responses have been documented in the HPI. ROS Other: All systems not noted in ROS Statement are negative. Past Medical History Past Medical History: No Reported History Additional Past Medical History / Comment(s): obesity, L thigh numbness on and off, bilateral lower extremity reddened skin, bilateral lower leg and pedal edema. History of Any Multi-Drug Resistant Organisms: None Reported Past Surgical History: Orthopedic Surgery Additional Past Surgical History / Comment(s): I&D R neck abscess, R humerus fx with plate. Past Anesthesia/Blood Transfusion Reactions: No Reported Reaction Past Psychological History: No Psychological Hx Reported Smoking Status: Current every day smoker Past Alcohol Use History: None Reported Past Drug Use History: None Reported - Past Family History Father Family Medical History: Cancer Additional Family Medical History / Comment(s): Father had lymphom treated with chemo. He is alive and in his 60's Mother Family Medical History: Myocardial Infarction ([place]) Additional Family Medical History / Comment(s): Mother possibly of a [place] at the age of 62. General Exam - General Exam Comments Initial Comments: This a well-developed well-nourished morbidly obese male who is awake alert oriented 3 Limitations: no limitations General appearance: alert Head exam: Present: atraumatic, normocephalic, normal inspection Eye exam: Present: normal appearance, PERRL, EOMI. Absent: scleral icterus, conjunctival injection, periorbital swelling ENT exam: Present: normal exam, mucous membranes moist Neck exam: Present: normal inspection, full ROM, other (Surgery or bruits). Absent: tenderness, meningismus, lymphadenopathy Respiratory exam: Present: decreased breath sounds. Absent: respiratory dist ress, wheezes, rales, rhonchi, stridor Cardiovascular Exam: Present: regular rate, normal rhythm, normal heart sounds. Absent: systolic murmur, diastolic murmur, rubs, gallop, clicks GI/Abdominal exam: Present: soft, normal bowel sounds, other (Obese abdomen). Absent: distended, tenderness, guarding, rebound, rigid Extremities exam: Present: full ROM, normal capillary refill, pedal edema, other (Tased dermatitis with evidence of tense peripheral edema some drainage seen to the left leg clear in nature no evidence of increased localized temperature or lymphangitis). Absent: tenderness, joint swelling, calf tenderness Back exam: Present: normal inspection Neurological exam: Present: alert, oriented X3, CN II-XII intact Psychiatric exam: Present: normal affect, normal mood Skin exam: Present: warm, dry, intact, normal color. Absent: rash Course Vital Signs 04/29/22 04/29/22 04/29/22 15:25 17:52 18:23 Temperature 98.7 F Pulse Rate 95 83 Respiratory 24 18 19 Rate Blood Pressure 214/102 149/81 O2 Sat by Pulse 84 L 93 L Oximetry 04/29/22 04/29/22 04/29/22 20:01 20:09 20:37 Temperature 98.4 F Pulse Rate 80 76 87 Respiratory 24 Rate Blood Pressure 147/76 O2 Sat by Pulse 92 L Oximetry - Reevaluation(s) Reevaluation #1: 04/29/22 21:20 Evaluation the patient after initial treatment he does feel improved he still has some exertional dyspnea but this is chronic. He does state his normal pulse ox is low 90s Medical Decision Making - Medical Decision Making I did discuss findings with the patient. He is feeling improved we did discuss options including admission which she does not want to do this time he states he has to go to work. We did discuss the suspected cause of the above issues who will be going home with an inhaler oral steroids and Lasix prescriptions. He is occurs come back if any problems we did discuss return parameters. He has otherwise follow up with a family physician. - Lab Data Result diagrams: 04/29/22 17:06 04/29/22 17:06 Lab Results 04/29/22 04/29/22 04/29/22 Range/Units 17:06 17:06 17:06 WBC 11.0 H (3.8-10.6) k/uL RBC 5.64 (4.30-5.90) m/uL Hgb 17.9 H (13.0-17.5) gm/dL Hct 58.3 H* (39.0-53.0) % MCV 103.4 H (80.0-100.0) fL MCH 31.8 (25.0-35.0) pg MCHC 30.8 L (31.0-37.0) g/dL RDW 15.9 H (11.5-15.5) % Plt Count 197 (150-450) k/uL MPV 7.3 Neutrophils % 80 % Lymphocytes % 12 % Monocytes % 5 % Eosinophils % 2 % Basophils % 1 % Neutrophils # 8.8 H (1.3-7.7) k/uL Lymphocytes # 1.3 (1.0-4.8) k/uL Monocytes # 0.5 (0-1.0) k/uL Eosinophils # 0.2 (0-0.7) k/uL Basophils # 0.1 (0-0.2) k/uL Hypochromasia Marked Macrocytosis Moderate PT 11.5 (9.0-12.0) sec INR 1.1 (<1.2) APTT 26.4 (22.0-30.0) sec D-Dimer 1.12 H (<0.60) mg/L FEU Sodium 139 (137-145) mmol/L Potassium 5.0 (3.5-5.1) mmol/L Chloride 96 L (98-107) mmol/L Carbon Dioxide 39 H (22-30) mmol/L Anion Gap 4 mmol/L BUN 22 H (9-20) mg/dL Creatinine 0.80 (0.66-1.25) mg/dL Est GFR (CKD-EPI)AfAm >90 (>60 ml/min/1.73 sqM) Est GFR (CKD-EPI)NonAf >90 (>60 ml/min/1.73 sqM) Glucose 121 H (74-99) mg/dL Plasma Lactic Acid Nicholas (0.7-2.0) mmol/L Calcium 8.4 (8.4-10.2) mg/dL Magnesium 2.4 H (1.6-2.3) mg/dL Total Bilirubin 0.9 (0.2-1.3) mg/dL AST 38 (17-59) U/L ALT 25 (4-49) U/L Alkaline Phosphatase 89 (38-126) U/L Troponin I (0.000-0.034) ng/mL NT-Pro-B Natriuret Pep pg/mL Total Protein 6.8 (6.3-8.2) g/dL Albumin 3.7 (3.5-5.0) g/dL TSH 3.110 (0.465-4.680) mIU/L Urine Color Urine Appearance (Clear) Urine pH (5.0-8.0) Ur Specific [place] (1.001-1.035) Urine Protein (Negative) Urine Glucose (UA) (Negative) Urine Ketones (Negative) Urine Blood (Negative) Urine Nitrite (Negative) Urine Bilirubin (Negative) Urine Urobilinogen (<2.0) mg/dL Ur Leukocyte Esterase (Negative) Urine RBC (0-5) /hpf Urine WBC (0-5) /hpf Ur Squamous Epith Cells (0-4) /hpf Urine Mucus (None) /hpf 04/29/22 04/29/22 04/29/22 Range/Units 17:06 17:06 17:06 WBC (3.8-10.6) k/uL RBC (4.30-5.90) m/uL Hgb (13.0-17.5) gm/dL Hct (39.0-53.0) % MCV (80.0-100.0) fL MCH (25.0-35.0) pg MCHC (31.0-37.0) g/dL RDW (11.5-15.5) % Plt Count (150-450) k/uL MPV Neutrophils % % Lymphocytes % % Monocytes % % Eosinophils % % Basophils % % Neutrophils # (1.3-7.7) k/uL Lymphocytes # (1.0-4.8) k/uL Monocytes # (0-1.0) k/uL Eosinophils # (0-0.7) k/uL Basophils # (0-0.2) k/uL Hypochromasia Macrocytosis PT (9.0-12.0) sec INR (<1.2) APTT (22.0-30.0) sec D-Dimer (<0.60) mg/L FEU Sodium (137-145) mmol/L Potassium (3.5-5.1) mmol/L Chloride (98-107) mmol/L Carbon Dioxide (22-30) mmol/L Anion Gap mmol/L BUN (9-20) mg/dL Creatinine (0.66-1.25) mg/dL Est GFR (CKD-EPI)AfAm (>60 ml/min/1.73 sqM) Est GFR (CKD-EPI)NonAf (>60 ml/min/1.73 sqM) Glucose (74-99) mg/dL Plasma Lactic Acid Nicholas 1.0 (0.7-2.0) mmol/L Calcium (8.4-10.2) mg/dL Magnesium (1.6-2.3) mg/dL Total Bilirubin (0.2-1.3) mg/dL AST (17-59) U/L ALT (4-49) U/L Alkaline Phosphatase (38-126) U/L Troponin I <0.012 (0.000-0.034) ng/mL NT-Pro-B Natriuret Pep 302 pg/mL Total Protein (6.3-8.2) g/dL Albumin (3.5-5.0) g/dL TSH (0.465-4.680) mIU/L Urine Color Urine Appearance (Clear) Urine pH (5.0-8.0) Ur Specific [place] (1.001-1.035) Urine Protein (Negative) Urine Glucose (UA) (Negative) Urine Ketones (Negative) Urine Blood (Negative) Urine Nitrite (Negative) Urine Bilirubin (Negative) Urine Urobilinogen (<2.0) mg/dL Ur Leukocyte Esterase (Negative) Urine RBC (0-5) /hpf Urine WBC (0-5) /hpf Ur Squamous Epith Cells (0-4) /hpf Urine Mucus (None) /hpf 04/29/22 Range/Units 17:06 WBC (3.8-10.6) k/uL RBC (4.30-5.90) m/uL Hgb (13.0-17.5) gm/dL Hct (39.0-53.0) % MCV (80.0-100.0) fL MCH (25.0-35.0) pg MCHC (31.0-37.0) g/dL RDW (11.5-15.5) % Plt Count (150-450) k/uL MPV Neutrophils % % Lymphocytes % % Monocytes % % Eosinophils % % Basophils % % Neutrophils # (1.3-7.7) k/uL Lymphocytes # (1.0-4.8) k/uL Monocytes # (0-1.0) k/uL Eosinophils # (0-0.7) k/uL Basophils # (0-0.2) k/uL Hypochromasia Macrocytosis PT (9.0-12.0) sec INR (<1.2) APTT (22.0-30.0) sec D-Dimer (<0.60) mg/L FEU Sodium (137-145) mmol/L Potassium (3.5-5.1) mmol/L Chloride (98-107) mmol/L Carbon Dioxide (22-30) mmol/L Anion Gap mmol/L BUN (9-20) mg/dL Creatinine (0.66-1.25) mg/dL Est GFR (CKD-EPI)AfAm (>60 ml/min/1.73 sqM) Est GFR (CKD-EPI)NonAf (>60 ml/min/1.73 sqM) Glucose (74-99) mg/dL Plasma Lactic Acid Nicholas (0.7-2.0) mmol/L Calcium (8.4-10.2) mg/dL Magnesium (1.6-2.3) mg/dL Total Bilirubin (0.2-1.3) mg/dL AST (17-59) U/L ALT (4-49) U/L Alkaline Phosphatase (38-126) U/L Troponin I (0.000-0.034) ng/mL NT-Pro-B Natriuret Pep pg/mL Total Protein (6.3-8.2) g/dL Albumin (3.5-5.0) g/dL TSH (0.465-4.680) mIU/L Urine Color Light Yellow Urine Appearance Clear (Clear) Urine pH 5.5 (5.0-8.0) Ur Specific [place] 1.009 (1.001-1.035) Urine Protein Negative (Negative) Urine Glucose (UA) Negative (Negative) Urine Ketones Negative (Negative) Urine Blood Negative (Negative) Urine Nitrite Negative (Negative) Urine Bilirubin Negative (Negative) Urine Urobilinogen <2.0 (<2.0) mg/dL Ur Leukocyte Esterase Trace H (Negative) Urine RBC <1 (0-5) /hpf Urine WBC 3 (0-5) /hpf Ur Squamous Epith Cells <1 (0-4) /hpf Urine Mucus Rare H (None) /hpf - EKG Data -: EKG Interpreted by [place] EKG shows normal: sinus rhythm EKG Comments: Sinus rhythm 83. Interval 142 QRS duration 103 QT since QTC 367/407 evidence of RVH - Radiology Data Radiology results: report reviewed (Imaging reviewed as well as report no acute findings.), image reviewed Disposition Clinical Impression: Acute exacerbation of chronic obstructive pulmonary disease, Hypoxemia, Amy pheral edema Disposition: HOME SELF-CARE Condition: Good Instructions (If sedation given, give patient instructions): COPD (Chronic Obstructive Pulmonary Disease) (ED), Edema (ED) Prescriptions: Ipratropium/Albuterol Sulfate [Combivent Respimat Inhaler] 2 puff INHALATION QID PRN #1 each PRN Reason: Dyspnea predniSONE [Deltasone] 20 mg PO BID #10 tab Furosemide [Lasix] 20 mg PO DAILY #30 tab Is patient prescribed a controlled substance at d/c from ED?: No Referrals: None,Stated [Primary Care Provider] - 1-2 days Decision Date: 04/29/22 Decision Time: 21:24
[2022-04-29 17:16] LABS: Basophils # (A) 0.1 k/uL (0-0.2); Basophils % (A) 1 %; Eosinophils # (A) 0.2 k/uL (0-0.7); Eosinophils % (A) 2 %; HGB 17.9 gm/dL (13.0-17.5); Hypochromasia Marked; Lymphocytes # (A) 1.3 k/uL (1.0-4.8); Lymphocytes % (A) 12 %; MCH 31.8 pg (25.0-35.0); MCHC 30.8 g/dL (31.0-37.0); MCV 103.4 fL (80.0-100.0); Macrocytosis Moderate; Mean Platelet Volume 7.3; Monocytes # (A) 0.5 k/uL (0-1.0); Monocytes % (A) 5 %; Neutrophils # (A) 8.8 k/uL (1.3-7.7); Neutrophils % (A) 80 %; Platelet Count 197 k/uL (150-450); RBC 5.64 m/uL (4.30-5.90); RDW 15.9 % (11.5-15.5)
[2022-04-29 17:27] LABS: ALT 25 U/L (4-49); African American GFR (CKD) >90 (>60 ml/min/1.73 sqM); Albumin 3.7 g/dL (3.5-5.0); Anion Gap 4 mmol/L; Blood Urea Nitrogen 22 mg/dL (9-20); Calcium 8.4 mg/dL (8.4-10.2); Carbon Dioxide 39 mmol/L (22-30); Chloride 96 mmol/L (98-107); Glucose 121 mg/dL (74-99); Non-African American GFR(CKD) >90 (>60 ml/min/1.73 sqM); Sodium 139 mmol/L (137-145); Total Bilirubin 0.9 mg/dL (0.2-1.3); Total Protein 6.8 g/dL (6.3-8.2)
[2022-04-29 17:31] LABS: AST 38 U/L (17-59); Alkaline Phosphatase 89 U/L (38-126); Magnesium 2.4 mg/dL (1.6-2.3)
[2022-04-29 17:36] LABS: INR 1.1 (<1.2); Partial Thromboplastin Time 26.4 sec (22.0-30.0); Prothrombin Time 11.5 sec (9.0-12.0)
[2022-04-29 17:40] LABS: HCT 58.3 % (39.0-53.0)
--- NOTE | 2022-04-29 18:27 | XR ---
EXAMINATION TYPE: XR chest 2V DATE OF EXAM: 04/29/2022 5:49 PM COMPARISON: Chest radiographs from 12/02/2019 TECHNIQUE: XR chest 2V Frontal and lateral views of the chest. CLINICAL INDICATION:Male, 47 years old with history of difficulty breathing; FINDINGS: Lungs/Pleura: Increased airspace opacities within the right lung base compared to prior. There remain s a coarse interstitium appearance compared to 2020. No evidence of pneumothorax or pleural effusion. Pulmonary vascularity: Unremarkable. Heart/mediastinum: Cardiomediastinal silhouette is unremarkable. Musculoskeletal: No acute osseous pathology. IMPRESSION: 1. Increased airspace opacities within the right lung base correlate for pneumonia. 2. Chronic interstitial changes similar to 12/02/2019.
[2022-04-29 19:02] LABS: Appearance,Urine Clear (Clear); Bilirubin,Urine Negative (Negative); Blood,Urine Negative (Negative); Color,Urine Light Yellow; Glucose,Urine (UA) Negative (Negative); Ketones,Urine Negative (Negative); Leukocyte Esterase,Urine Trace (Negative); Mucus,Urine Rare /hpf; Nitrite,Urine Negative (Negative); PH, Urine 5.5 (5.0-8.0); Protein,Urine Negative (Negative); RBC,Urine <1 /hpf (0-5); Specific Gravity,Urine 1.009 (1.001-1.035); Squamous Epithelial Cell,Urine <1 /hpf (0-4); Urobilinogen,Urine <2.0 mg/dL (<2.0); WBC,Urine 3 /hpf (0-5)
--- NOTE | 2022-04-29 20:04 | CT ---
EXAMINATION TYPE: CT angio chest CT DLP: 1254 mGycm, Automated exposure control for dose reduction was used. DATE OF EXAM: 04/29/2022 7:47 PM COMPARISON: Chest radiograph from same day. CT angiogram 04/30/2016. CLINICAL INDICATION:Male, 47 years old with history of PE suspected; SOB TECHNIQUE/CONTRAST: CTA scan of the thorax is performed with IV Contrast, patient injected with 100 mL of Isovue 370, pul monary embolism protocol. MIP images are created and reviewed. FINDINGS: Pulmonary Artery: There is no evidence for a central filling defect within the pulmonary vasculature to suggest acute pulmonary embolism. Limited evaluation of the segmental and subsegmental branches se condary to bolus timing. The pulmonary artery is at the upper limits of normal measuring 13 mm. Lungs/Pleura: No evidence of focal consolidation, pleural effusion or pneumothorax. Airway: Large airways are patent. Heart: Heart is prominent in size. Vasculature: No evidence of aortic aneurysm. Mediastinum: No gross evidence of adenopathy. Musculoskeletal: No acute osseous abnormalities Soft Tissues: Unremarkable. Lower neck: No significant findings. Upper Abdomen: Diffuse low-attenuation to the liver parenchyma. IMPRESSION: 1. No evidence of central pulmonary embolism. Limited evaluation of the segmental and subsegmental br anches. 2. Hepatic steatosis.
[2022-04-29 20:38] VITALS: BP 147/76; PULSE 87; RESP 24; TEMP 98.4
== END 2022-04-29 21:56 | disposition home or self-care (01) ==
LOC: EC 15:00
DX: J44.1 Chronic obstructive pulmonary disease with (acute) exacerbation (principal); R09.02 Hypoxemia; R60.0 Localized edema; E66.9 Obesity, unspecified; F17.210 Nicotine dependence, cigarettes, uncomplicated; Z88.5 Allergy status to narcotic agent; Z68.44 Body mass index [BMI] 60.0-69.9, adult
CPT/HCPCS: 36415; 94640; 93005; 85379; 83880; 80053; 84443; 83605; 83735; 84484; 85025; 85610; 85730; 81001; 71046; 71275; 99285; Q9967

== ENCOUNTER 2022-11-20 22:59 | Emergency (ER) | payer BC ==
[2022-11-20 23:03] VITALS: BP 189/79; PULSE 113; RESP 24; TEMP 97.9
--- NOTE | 2022-11-20 23:41 | ED ---
Wound/Laceration HPI - General Chief Complaint: Wound/Laceration Stated Complaint: Left leg laceration Time Seen by Provider: 11/20/22 23:07 Source: patient, RN notes reviewed, old records reviewed Mode of arrival: wheelchair Limitations: no limitations - History of Present Illness Initial Comments: This is a 47-year-old male to the emergency department for evaluation patient presents today for evaluation of left lower extremity pain, this is following a skin tear which he sustained walking by a table and his house. Significant bleeding wound is currently clean and dress patient is not on blood thinners. -: hour(s) Extremity Location: Left: Lower Leg Place: home Patient Tetanus UTD: Yes Context: accidental Associated Symptoms: none Treatments Prior to Arrival: bandage - Related Data Previous Rx's Medication Instructions Recorded Furosemide [Lasix] 20 mg PO DAILY #30 tab 04/29/22 Ipratropium/Albuterol Sulfate 2 puff INHALATION QID PRN #1 each 04/29/22 [Combivent Respimat Inhaler] predniSONE [Deltasone] 20 mg PO BID #10 tab 04/29/22 Allergies Allergy/AdvReac Type Severity Reaction Status Date / Time hydromorphone [From Dilaudid] Allergy Unknown Verified 11/20/22 23:03 Review of Systems ROS Statement: Those systems with pertinent positive or pertinent negative responses have been documented in the HPI. ROS Other: All systems not noted in ROS Statement are negative. Past Medical History Past Medical History: No Reported History Additional Past Medical History / Comment(s): obesity, L thigh numbness on and off, bilateral lower extremity reddened skin, bilateral lower leg and pedal edema. History of Any Multi-Drug Resistant Organisms: None Reported Past Surgical History: Orthopedic Surgery Additional Past Surgical History / Comment(s): I&D R neck abscess, R humerus fx with plate. Past Anesthesia/Blood Transfusion Reactions: No Reported Reaction Past Psychological History: No Psychological Hx Reported Smoking Status: Current every day smoker Past Alcohol Use History: None Reported Past Drug Use History: None Reported - Past Family History Father Family Medical History: Cancer Additional Family Medical History / Comment(s): Father had lymphom treated with chemo. He is alive and in his 60's Mother Family Medical History: Myocardial Infarction ([place]) Additional Family Medical History / Comment(s): Mother possibly of a [place] at the age of 62. General Exam Limitations: no limitations General appearance: alert, in no apparent distress Head exam: Present: atraumatic, normocephalic, normal inspection Eye exam: Present: normal appearance, PERRL, EOMI. Absent: scleral icterus, conjunctival injection, periorbital swelling ENT exam: Present: normal exam, mucous membranes moist Neck exam: Present: normal inspection. Absent: tenderness, meningismus, lymphadenopathy Respiratory exam: Present: normal lung sounds bilaterally. Absent: respiratory distress, wheezes, rales, rhonchi, stridor Cardiovascular Exam: Present: regular rate, normal rhythm, normal heart sounds. Absent: systolic murmur, diastolic murmur, rubs, gallop, clicks GI/Abdominal exam: Present: soft, normal bowel sounds. Absent: distended, tenderness, guarding, rebound, rigid Extremities exam: Present: normal inspection, full ROM, normal capillary refill, other (Right lower extremity skincare flap and triangle form, wound is dressed when undressed 1F punctate bleeding, in tears R10 cm total). Absent: tenderness, pedal edema, joint swelling, calf tenderness Back exam: Present: normal inspection Neurological exam: Present: alert, oriented X3, CN II-XII intact Psychiatric exam: Present: normal affect, normal mood Skin exam: Present: warm, dry, intact, normal color. Absent: rash Course Vital Signs 11/20/22 23:00 Temperature 97.9 F Pulse Rate 113 H Respiratory 24 Rate Blood Pressure 189/79 O2 Sat by Pulse 81 L Oximetry - Reevaluation(s) Reevaluation #1: 11/21/22 00:50 Medical records reviewed Reevaluation #2: 11/21/22 00:50 Patient informed of results and questions answered Reevaluation #3: 11/21/22 00:50 Patient symptoms improved Reevaluation #4: 11/21/22 00:50 Skin flap did not need repair jittery bandage and cleaning which was done here in the ER Wound was also injected with lidocaine appendectomy at one area of mild bleeding Medical Decision Making - Medical Decision Making 47 male DF for evaluation left lower Shorty skin care, wound is cleaned dressed Disposition Clinical Impression: Skin tear of left lower leg without complication Disposition: HOME SELF-CARE Condition: Good Instructions (If sedation given, give patient instructions): Skin Tear (ED) Is patient prescribed a controlled substance at d/c from ED?: No Referrals: None,Stated [Primary Care Provider] - 1-2 days Time of Disposition: 00:50
[2022-11-21] MEDS ORDERED: CEPHALEXIN 500MG STARTER PACK 4 CAP BTL PO STA (00:49)
[2022-11-21] MEDS ORDERED: CEPHALEXIN 500 MG CAP PO STA (00:49)
== END 2022-11-21 01:16 | disposition home or self-care (01) ==
LOC: EC 22:59
DX: S81.812A Laceration without foreign body, left lower leg, initial encounter (principal); F17.200 Nicotine dependence, unspecified, uncomplicated; Z88.5 Allergy status to narcotic agent; W22.8XXA Striking against or struck by other objects, initial encounter; Y92.019 Unspecified place in single-family (private) house as the place of occurrence of the external cause
CPT/HCPCS: 99282